=== PATIENT | female | born 1950 | race Caucasian/White ===

== ENCOUNTER 2016-09-26 06:58 | Day surgery (SDC) | payer MEDICARE, BC ==
[2016-09-26] MEDS ORDERED: Lactated Ringers 1,000 ML IV SCH (07:45)
[2016-09-26] MEDS ORDERED: Propofol 200 MG/20 ML SDV ONE (07:54)
[2016-09-26] MEDS ORDERED: fentaNYL 100 MCG/2 ML SDV ONE (07:54)
[2016-09-26] MEDS ORDERED: Midazolam 1 MG/ML 2 ML SDV ONE (07:54)
[2016-09-26 10:55] VITALS: BP 124/78
--- NOTE | 2016-09-27 08:12 | OR ---
DATE OF PROCEDURE: 09/26/2016 PREOPERATIVE DIAGNOSIS: Colon cancer screening. POSTOPERATIVE DIAGNOSIS: Diverticulosis. PROCEDURE: Colonoscopy to the cecum. ANESTHESIA: IV anesthesia with monitored anesthesia care. INDICATION: This 66-year-old white female is referred for a colonoscopy for colon cancer screening. She says her last colonoscopic exam was done 10 years ago. I counseled her for the procedure including risks and alternatives, and she gave her informed consent to proceed. DESCRIPTION OF PROCEDURE: The patient was placed in the left lateral decubitus position. IV anesthesia was administered by the Anesthesia Service. Time-out was held. A rectal exam was performed, which was unremarkable. The flexible video Olympus colonoscope was introduced through her anus, up her rectum, and out her colon, all the way to the cecum. Once the cecum was reached, the scope was slowly withdrawn examining the mucosa throughout. A few left-sided diverticula were seen. There was no bleeding or inflammation associated with them. No other lesions were noted. The scope was retroflexed in the rectum with the distal rectum showing some hemorrhoidal tissue. Otherwise, unremarkable. The scope was straightened and removed. She tolerated the procedure well. Ben De La Torre MD /[id number]
== END 2016-09-26 11:10 | disposition home or self-care (01) ==
LOC: JP.SDS 06:58
PROVIDERS: ATTEND Surgery
DX: Z12.11 Encounter for screening for malignant neoplasm of colon (principal); K57.30 Diverticulosis of large intestine without perforation or abscess without bleeding; E78.00 Pure hypercholesterolemia, unspecified; E03.9 Hypothyroidism, unspecified; I12.9 Hypertensive chronic kidney disease with stage 1 through stage 4 chronic kidney disease, or unspecified chronic kidney disease; N18.2 Chronic kidney disease, stage 2 (mild); K21.9 Gastro-esophageal reflux disease without esophagitis
CPT/HCPCS: G0121; J2250; J2704; J3010; J7120

== ENCOUNTER 2017-06-21 22:07 | Emergency (ER) | payer MEDICARE, BC ==
[2017-06-21] MEDS ORDERED: Iohexol 300 MG/ML 30 ML Bottle PO ONE (22:58)
[2017-06-21] MEDS ORDERED: Sodium Chloride 0.9% 1,000 ML IV SCH (23:00)
[2017-06-21 23:34] VITALS: BP 172/62
--- NOTE | 2017-06-21 23:34 | EDM.PDOC ---
ED HPI GENERAL MEDICAL PROBLEM - General Chief Complaint: Gastrointestinal Problem Stated Complaint: ABD ISSUES Time Seen by Provider: 06/21/17 22:30 Source of Information: Reports: Patient, Family History Limitations: Reports: No Limitations - History of Present Illness INITIAL COMMENTS - FREE TEXT/NARRATIVE: 59-year-old female with upper abdominal pain for the past week, she was seen in the clinic 2 days ago with a chief complaint of epigastric pain. Her exam was nonspecific and labs were normal including a CBC and CMP. She was set up for an EGD early next week, but tonight the pain was more persistent, radiated to her back and her stools were light colored so she wanted it checked again. No fevers or chills. She's been taking antacids which isn't helping. Onset: Unknown/Unsure Location: Reports: Abdomen, Back Severity: Moderate Associated Symptoms: Reports: Malaise. Denies: Fever/Chills, Headaches, Nausea/ Vomiting, Shortness of Breath abdominal pain Pain Score (Numeric/FACES): 5 - Related Data Allergies Allergy/AdvReac Type Severity Reaction Status Date / Time No Known Allergies Allergy Verified 09/26/16 07:16 Home Meds: Home Meds Metoprolol Tartrate [Metoprolol Tartrate] 50 mg PO QAM 07/23/15 [History] Aspirin [Adult Low Dose Aspirin EC] 81 mg PO DAILY 09/24/16 [History] Hydrochlorothiazide [Hydrochlorothiazide] 25 mg PO DAILY 06/21/17 [History] Losartan [Cozaar] 25 mg PO DAILY 06/21/17 [History] Omeprazole Magnesium [Prilosec Otc] 20 mg PO DAILY 06/21/17 [History] Past Medical History HEENT 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: Cataract, Impaired Vision Cardiovascular 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: Hypertension Gastrointestinal 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: GERD Genitourinary 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: Chronic Renal Insuffiency 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: Musculoskeletal 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: Arthritis, Back Pain, Chronic, Osteoporosis Neurological 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: None Psychiatric 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: Depression - Infectious Disease History Infectious Disease 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: Chicken Pox, Measles, Mumps, Shingles - Past Surgical History HEENT Surgical 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: Cataract Surgery, Tonsillectomy GI Surgical 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: Appendectomy, Colonoscopy Neurological Surgical 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: Lumbar Spine, Spinal Fusion Musculoskeletal Surgical 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: Arthroscopic Knee Social & Family History - Tobacco Use Smoking Status *Q: Never Smoker Second Hand Smoke Exposure: No - Caffeine Use Caffeine Use: Reports: Coffee - Recreational Drug Use Recreational Drug Use: No ED ROS GENERAL - Review of Systems Review Of Systems: See Below Constitutional: Reports: Malaise. Denies: Fever, Chills Respiratory: Denies: Shortness of Breath Cardiovascular: Reports: Chest Pain (Epigastric) GI/Abdominal: Reports: Abdominal Pain, Other (Stool color is very light tonight) . Denies: Constipation, Diarrhea, Nausea, Vomiting : Reports: No Symptoms Skin: Reports: No Symptoms Neurological: Reports: Other (Some pain in her back radiating down the back of her legs) Psychiatric: Reports: Other (Seems very anxious) ED EXAM, GI/ABD - Physical Exam Exam: See Below Exam Limited By: No Limitations General Appearance: Alert, No Apparent Distress Eyes: Bilateral: Normal Appearance Respiratory/Chest: No Respiratory Distress, Lungs Clear Cardiovascular: Regular Rate, Rhythm GI/Abdominal Exam: Soft, Non-Tender (I am not reproducing a lot of pain with exam) Neurological: Alert, Oriented Skin Exam: Warm, Dry Course - Vital Signs Last Recorded V/S: Last Vital Signs Temp 97.0 F 06/21/17 22:41 Pulse 60 06/21/17 23:32 Resp 18 06/21/17 23:32 BP 172/62 H 06/21/17 23:32 Pulse Ox 98 06/21/17 23:32 - Orders/Labs/Meds Orders: Active Orders 24 hr Category Date Time Status Abdomen Pelvis w Cont [CT] Stat Exams 06/21/17 22:55 Taken Labs: Laboratory Tests 06/21/17 Range/Units 23:09 Troponin I < 0.017 (0.000-0.056) ng/mL Meds: Medications Discontinued Medications Generic Name Dose Route Start Last Admin Trade Name Freq PRN Reason Stop Dose Admin Sodium Chloride 1,000 mls @ 500 mls/hr 06/21/17 23:00 06/21/17 23:09 Normal Saline IV 500 mls/hr ASDIRECTED JAXSON Administration Sodium Chloride 75 mls @ 3 mls/sec 06/22/17 00:15 06/22/17 00:28 Normal Saline IV 3 mls/sec ASDIRECTED JAXSON Administration Iohexol 20 ml 06/21/17 22:58 06/21/17 23:08 Omnipaque PO 06/21/17 22:59 20 ml ONETIME ONE Administration Iopamidol 100 ml 06/22/17 00:10 06/22/17 00:28 Isovue-300 (61%) IV 06/23/17 00:11 100 ml . DIRECTED PRN Administration RADIOLOGY EXAM Sodium Chloride 10 ml 06/22/17 00:10 06/22/17 00:28 Saline Flush FLUSH 06/22/17 00:11 10 ml ONETIME ONE Administration - Re-Assessments/Exams Free Text/Narrative Re-Assessment/Exam: 06/21/17 23:34 Reviewed the clinic records, her labs were all normal 2 days ago. An IV was started, she was hydrated with normal saline and a troponin was obtained. Plans are to CT her abdomen and pelvis with oral and IV contrast. 06/22/17 01:18 CT revealed a very large hepatic cyst pressing up against the hepatic capsule under the ribs and extending to the gallbladder. No other significant abnormalities. I did review the clinic records and found a CT scan from 2007, the cyst was present but much smaller. I suspect it's become symptomatic. I'll discuss the findings with Dr. Mitchell in the morning, the patient will be discharged for tonight. Departure - Departure Time of Disposition: 01:30 Disposition: Home, Self-Care 01 Condition: Good Clinical Impression: Abdominal pain - Discharge Information Instructions: Abdominal Pain, Adult, [id number] Referrals: Leticia Carrasco PA [Primary Care Provider] - Forms: ED Department Discharge Care Plan Goals: I am planning on having Dr. Mitchell contact you in the next 48 hours to discuss treatment plans. If you do not hear from him by Saturday, please call the clinic. Return to ER sooner if worsening or concerns. - My Orders Last 24 Hours: My Active Orders 06/21/17 22:55 Abdomen Pelvis w Cont [CT] Stat - Assessment/Plan Last 24 Hours: My Active Orders 06/21/17 22:55 Abdomen Pelvis w Cont [CT] Stat
[2017-06-22] MEDS ORDERED: Iopamidol 612 MG/ML 100 ML Bottle IV PRN (00:10)
[2017-06-22] MEDS ORDERED: Sodium Chloride 0.9% 10 ML Syringe FLUSH ONE (00:10)
[2017-06-22] MEDS ORDERED: Sodium Chloride 0.9% 75 ML IV SCH (00:15)
== END 2017-06-22 01:33 | disposition home or self-care (01) ==
LOC: JP.ED 22:07
DX: R10.10 Upper abdominal pain, unspecified (principal); I12.9 Hypertensive chronic kidney disease with stage 1 through stage 4 chronic kidney disease, or unspecified chronic kidney disease; K21.9 Gastro-esophageal reflux disease without esophagitis; N18.9 Chronic kidney disease, unspecified; Z79.899 Other long term (current) drug therapy; Z79.82 Long term (current) use of aspirin
CPT/HCPCS: 36415; 74177; 84484; 96360; 96361; 99284; J7030; J7040; J7050; Q9965; Q9967; 99283

== ENCOUNTER 2017-06-24 07:41 | Inpatient (IN) | payer MEDICARE, BC ==
[2017-06-24] MEDS ORDERED: Bupivacaine 0.5%/EPINEPHrine 1:200,000 50 ML MDV ONE (07:43)
[2017-06-24] MEDS ORDERED: Scopolamine 1.5 MG Transdermal Patch TOP SCH (08:15)
[2017-06-24] MEDS ORDERED: Celecoxib 200 MG Cap PO ONE (08:15)
[2017-06-24] MEDS: Acetaminophen 500 MG Tab PO ONE ×2 (08:29→08:53)
[2017-06-24] MEDS ORDERED: Glycopyrrolate 0.2 MG/ML 5 ML MDV ONE (08:42)
[2017-06-24] MEDS ORDERED: fentaNYL 250 MCG/5 ML SDV ONE (08:42)
[2017-06-24] MEDS ORDERED: Dexamethasone 4 MG/ML SDV ONE (08:42)
[2017-06-24] MEDS ORDERED: Rocuronium 50 MG/5 ML Vial ONE (08:42)
[2017-06-24] MEDS ORDERED: Propofol 200 MG/20 ML SDV ONE (08:42)
[2017-06-24] MEDS ORDERED: Ondansetron 4 MG/2 ML SDV ONE (08:42)
[2017-06-24] MEDS ORDERED: Neostigmine Methylsulfate 1 MG/ML 5 ML Syringe ONE (08:42)
[2017-06-24] MEDS ORDERED: Dextrose 5%-Lactated Ringers 1,000 ML IV SCH ×2 (09:00→12:30)
[2017-06-24] MEDS ORDERED: Lidocaine 2% 100 MG/5 ML Syringe IVPUSH ONE (09:30)
[2017-06-24] MEDS ORDERED: cefOXitin 2 GM in Premix Bag 1 BAG IV ONE (09:30)
[2017-06-24] MEDS ORDERED: Lidocaine 0.4%/D5W 2 GM/500 ML BAG IV SCH ×2 (09:30→12:15)
[2017-06-24] MEDS ORDERED: Ketamine 500 MG/5 ML MDV IV SCH (09:30)
[2017-06-24] MEDS ORDERED: Ropivacaine 32 ML, Dexamethasone 8 MG, EPINEPHrine 0.4 MG, Sodium Chloride 0.9% 45.6 ML NERVRT SCH ×4 (09:30)
[2017-06-24] MEDS ORDERED: Lactated Ringers 1,000 ML ONE (10:04)
[2017-06-24] MEDS ORDERED: HYDROmorphone/Normal Saline 15 MG/30 ML PCA IV PRN (11:21)
[2017-06-24] MEDS ORDERED: Naloxone 0.4 MG/ML SDV IV PRN (11:23)
[2017-06-24] MEDS ORDERED: hydrOXYzine HCl 100 MG/2 ML SDV IM ONE (11:45)
[2017-06-24] MEDS ORDERED: Ondansetron 4 MG/2 ML SDV IVPUSH PRN (12:24)
[2017-06-24] MEDS: Acetaminophen/HYDROcodone 325-5 MG Tab PO PRN ×2 (12:29→19:54)
[2017-06-24] MEDS ORDERED: Acetaminophen 325 MG Tab PO PRN (12:30)
[2017-06-24] MEDS: Hydrochlorothiazide 25 MG Tab PO SCH (14:29)
[2017-06-24] MEDS: Pantoprazole 40 MG Vial IV SCH (14:29)
[2017-06-24] MEDS: Losartan 50 MG Tab PO SCH (14:30)
[2017-06-24] MEDS: cefOXitin 2 GM in Sodium Chloride 0.9% 50 ML IV SCH ×2 (15:22→21:30)
[2017-06-24] MEDS: Dextrose 5%-Lact Ringers w/KCl 1,000 ML IV SCH (21:30)
[2017-06-25] MEDS: cefOXitin 2 GM in Sodium Chloride 0.9% 50 ML IV SCH (03:19)
[2017-06-25] MEDS: Dextrose 5%-Lact Ringers w/KCl 1,000 ML IV SCH (06:33)
--- NOTE | 2017-06-25 07:20 | PCM.SURGPN ---
- General Info Date of Service: 06/25/17 Date of Surgery/Procedure: 06/24/17 POD#: 1 Post-Op Diagnosis: Right lobe hepatic cyst Functional Status: Reports: Pain Controlled, Tolerating Diet, Ambulating, Urinating, Incentive Spirometry - Review of Systems General: Reports: No Symptoms HEENT: Reports: No Symptoms Pulmonary: Reports: No Symptoms Cardiovascular: Reports: No Symptoms Gastrointestinal: Reports: Abdominal Pain (generalized abdominal pain 09/17) Genitourinary: Reports: No Symptoms Musculoskeletal: Reports: Other (right shoulder pain) Skin: Reports: Other (IV infiltration of left wrist) Neurological: Reports: Confusion Psychiatric: Reports: Confusion - Patient Data Vitals - Most Recent: Last Vital Signs Temp 97.4 F 06/25/17 07:00 Pulse 71 06/25/17 03:00 Resp 18 06/25/17 07:00 BP 114/52 L 06/25/17 07:00 Pulse Ox 93 L 06/25/17 03:00 Weight - Most Recent: 141 lb I&O - Last 24 Hours: Intake & Output 06/24/17 06/25/17 06/25/17 22:59 06:59 14:59 Intake Total 1651 958 Output Total 365 620 Balance 1286 338 Lab Results Last 24 Hrs: Laboratory Results - last 24 hr 06/24/17 06/24/17 06/25/17 Range/Units 08:08 08:08 04:28 WBC 5.8 10.7 (4.5-11.0) K/uL RBC 4.86 3.90 (3.30-5.50) M/uL Hgb 14.3 11.5 L D (12.0-15.0) g/dL Hct 41.5 33.7 L (36.0-48.0) % MCV 85 86 (80-98) fL MCH 29 30 (27-31) pg MCHC 35 34 (32-36) % Plt Count 212 216 (150-400) K/uL Sodium 144 (140-148) mmol/L Potassium 3.3 L (3.6-5.2) mmol/L Chloride 102 (100-108) mmol/L Carbon Dioxide 31 (21-32) mmol/L Anion Gap 14.3 H (5.0-14.0) mmol/L BUN 13 (7-18) mg/dL Creatinine 0.9 (0.6-1.0) mg/dL Est Cr Clr Drug Dosing 46.23 mL/min Estimated GFR (MDRD) > 60 (>60) Glucose 126 H (74-106) mg/dL Calcium 8.9 (8.5-10.1) mg/dL Total Bilirubin 0.7 (0.2-1.0) mg/dL AST 19 (15-37) U/L ALT 28 (12-78) U/L Alkaline Phosphatase 65 (46-116) U/L Total Protein 7.1 (6.4-8.2) g/dL Albumin 3.9 (3.4-5.0) g/dL Globulin 3.2 (2.3-3.5) g/dL Albumin/Globulin Ratio 1.2 (1.2-2.2) 06/25/17 Range/Units 04:28 WBC (4.5-11.0) K/uL RBC (3.30-5.50) M/uL Hgb (12.0-15.0) g/dL Hct (36.0-48.0) % MCV (80-98) fL MCH (27-31) pg MCHC (32-36) % Plt Count (150-400) K/uL Sodium 143 (140-148) mmol/L Potassium 3.8 (3.6-5.2) mmol/L Chloride 106 (100-108) mmol/L Carbon Dioxide 26 (21-32) mmol/L Anion Gap 11.0 (5.0-14.0) mmol/L BUN 10 (7-18) mg/dL Creatinine 1.3 H (0.6-1.0) mg/dL Est Cr Clr Drug Dosing 32.01 mL/min Estimated GFR (MDRD) 41 L (>60) Glucose 177 H (74-106) mg/dL Calcium 8.2 L (8.5-10.1) mg/dL Total Bilirubin 0.4 (0.2-1.0) mg/dL AST 55 H D (15-37) U/L ALT 74 D (12-78) U/L Alkaline Phosphatase 52 (46-116) U/L Total Protein 5.6 L (6.4-8.2) g/dL Albumin 2.9 L (3.4-5.0) g/dL Globulin 2.7 (2.3-3.5) g/dL Albumin/Globulin Ratio 1.1 L (1.2-2.2) Fabrizio Results Last 24 Hrs: Microbiology 06/24/17 10:45 Gram Stain - Final Liver - Unspecified Wound Culture - Preliminary NO GROWTH AFTER 1 DAY Anaerobic Culture - Preliminary NO GROWTH AFTER 1 DAY Med Orders - Current: Current Medications Acetaminophen (Tylenol) 650 mg PO Q4H PRN PRN Reason: PAIIN Last Admin: 06/24/17 15:31 Dose: 650 mg Hydrocodone Bitart/Acetaminophen (Humphrey 325-5 Mg) 1 - 2 tab PO Q4H PRN PRN Reason: PAIN Last Admin: 06/24/17 19:54 Dose: 1 tab Aspirin (Halfprin) 81 mg PO DAILY [facility] Hydrochlorothiazide (Hydrochlorothiazide) 25 mg PO DAILY [facility] Last Admin: 06/24/17 14:29 Dose: 25 mg Hydromorphone HCl (Dilaudid Contract Specialist 15 Mg In Ns 30 Ml) 0 mg IV ASDIRECTED PRN; Protocol PRN Reason: Pain Potassium Cl/Dextrose/Lact Ringer's (D5 Lr With 20 Meq Kcl) 1,000 mls @ 125 mls /hr IV ASDIRECTED [facility] Last Admin: 06/25/17 06:33 Dose: 125 mls/hr Losartan Potassium (Cozaar) 25 mg PO DAILY [facility] Last Admin: 06/24/17 14:30 Dose: Not Given Metoprolol Succinate (Toprol Xl) 50 mg PO DAILY [facility] Naloxone HCl (Narcan) 0.1 mg IV ASDIRECTED PRN PRN Reason: decreased respiratory rate Ondansetron HCl (Zofran) 4 mg IVPUSH Q4H PRN PRN Reason: NAUSEA Pantoprazole Sodium (Protonix Iv) 40 mg IV DAILY@0730 [facility] Last Admin: 06/24/17 14:29 Dose: 40 mg Scopolamine (Transderm-Scop) 1.5 mg TOP Q72H [facility] Stop: 06/26/17 10:00 Last Admin: 06/24/17 08:29 Dose: 1.5 mg Discontinued Medications Acetaminophen (Tylenol Extra Strength) 1,000 mg PO ONETIME ONE Stop: 06/24/17 08:16 Last Admin: 06/24/17 08:53 Dose: Not Given Bupivacaine HCl/Epinephrine Bitart (Marcaine 0.5%/Epinephrine 1:200,000) Confirm Administered Dose 50 ml .ROUTE .STK-MED ONE Stop: 06/24/17 07:44 Celecoxib (Celebrex) 200 mg PO ONETIME ONE Stop: 06/24/17 08:16 Last Admin: 06/24/17 08:29 Dose: 200 mg Ropivacaine 32 ml/Dexamethasone 8 mg/Epinephrine HCl 0.4 mg/ Sodium Chloride 45.6 ml 0 ml NERVRT ASDIRECTED [facility] Last Admin: 06/24/17 10:40 Dose: 80 syringe Dexamethasone (Dexamethasone) Confirm Administered Dose 4 mg .ROUTE .STK-MED ONE Stop: 06/24/17 08:43 Fentanyl (Sublimaze) Confirm Administered Dose 250 mcg .ROUTE .[facility] ONE Stop: 06/24/17 08:43 Glycopyrrolate (Robinul) Confirm Administered Dose 1 mg .ROUTE .ST-MED ONE Stop: 06/24/17 08:43 Hydroxyzine HCl (Vistaril) 75 mg IM ONETIME ONE Stop: 06/24/17 11:46 Last Admin: 06/24/17 11:43 Dose: 75 mg Cefoxitin Sodium 2 gm/ Premix 20 mls @ 400 mls/hr IV ONETIME ONE Stop: 06/24/17 09:32 Last Admin: 06/24/17 09:57 Dose: 400 mls/hr Dextrose/Lactated Ringer's (Dextrose 5%-Lactated Ringers) 1,000 mls @ 100 mls/ hr IV ASDIRECTED [facility] Last Admin: 06/24/17 08:52 Dose: 100 mls/hr Lidocaine HCl/Dextrose (Lidocaine 2 Gm/D5w 500 Ml) 2 gm in 500 mls @ 30 mls/hr IV .[id number] [facility] PRN Reason: 2 MG/MIN Ketamine HCl 100 mg/ Sodium (Chloride) 100 mls @ 14.7 mls/hr IV ASDIRECTED [facility] PRN Reason: 5 MCG/KG/MIN Lactated Ringer's (Ringers, Lactated) Confirm Administered Dose 1,000 mls @ as directed .ROUTE .STK-MED ONE Stop: 06/24/17 10:05 Lidocaine HCl/Dextrose (Lidocaine 2 Gm/D5w 500 Ml) 2 gm in 500 mls @ 15 mls/hr IV .Q24H [facility] PRN Reason: 1 MG/MIN Stop: 06/25/17 11:00 Last Admin: 06/24/17 12:13 Dose: 1 mg/min, 15 mls/hr Cefoxitin Sodium 2 gm/ Sodium (Chloride) 50 mls @ 100 mls/hr IV Q6H [facility] Stop: 06/25/17 04:29 Last Admin: 06/25/17 03:19 Dose: 100 mls/hr Dextrose/Lactated Ringer's (Dextrose 5%-Lactated Ringers) 1,000 mls @ 125 mls/ hr IV ASDIRECTED JAXSON Ketamine HCl (Ketalar) 25 mg IV ASDIRECTED JAXSON Lidocaine HCl (Xylocaine 2%) 80 mg IVPUSH ONETIME ONE Stop: 06/24/17 09:31 Last Admin: 06/24/17 12:24 Dose: Not Given Neostigmine Methylsulfate (Neostigmine) Confirm Administered Dose 5 mg .ROUTE .STK-MED ONE Stop: 06/24/17 08:43 Ondansetron HCl (Zofran) Confirm Administered Dose 4 mg .ROUTE .STK-MED ONE Stop: 06/24/17 08:43 Propofol (Diprivan 20 Ml) Confirm Administered Dose 200 mg .ROUTE .STK-MED ONE Stop: 06/24/17 08:43 Rocuronium [place] (Zemuron) Confirm Administered Dose 50 mg .ROUTE .STK-MED ONE Stop: 06/24/17 08:43 - Exam Wound/Incisions: Drainage (110 mL bloody fluid) General: Alert, Other (disoriented to time) HEENT: Pupils Equal Lungs: Clear to Auscultation, Normal Respiratory Effort Cardiovascular: Regular Rate, Regular Rhythm GI/Abdominal Exam: Normal Bowel Sounds, Tender Extremities: Other (IV infiltration of left wrist) Skin: Warm, Dry Psy/Mental Status: Alert, Normal Affect, Normal Mood, Hallucinations (described auditory hallucinations, but pt aware she is having them) - Problem List Review Problem List Initiated/Reviewed/Updated: Yes - My Orders Last 24 Hours: Active Orders 24 hr Category Date Time Status Patient Status [ADT] Routine ADT 06/24/17 11:05 Active Ambulate [RC] ASDIRECTED Care 06/24/17 12:04 Active IS (RT) [RT Incentive Spirometry] [RC] ASDIRECTED Care 06/24/17 08:00 Active Intake and Output [RC] QSHIFT Care 06/24/17 12:08 Active Overnight Pulse Oximetry [RC] Click to Edit Care 06/24/17 14:33 Active Oxygen Therapy [RC] PRN Care 06/24/17 12:04 Active Surgical Drains [Drain Management] [RC] ASDIRECTED Care 06/24/17 12:13 Active Telemetry Monitoring [Cardiac Monitoring] [RC] .As Care 06/24/17 13:29 Active Directed Up to Chair [RC] ASDIRECTED Care 06/24/17 12:04 Active Vital Signs [RC] Q4H Care 06/24/17 12:04 Active Full Liquid Diet [DIET] Diet 06/24/17 Dinner Ordered Regular Diet [DIET] Diet 06/25/17 Breakfast Active BELL TEST [] Routine Lab 06/24/17 10:20 Received CULTURE ANAEROBIC [] Routine Lab 06/24/17 10:45 Results CULTURE WOUND + SMEAR [] Routine Lab 06/24/17 10:45 Results Acetaminophen [Tylenol] Med 06/24/17 12:30 Active 650 mg PO Q4H PRN Acetaminophen/HYDROcodone [Humphrey 325-5 MG] Med 06/24/17 12:21 Active 1 - 2 tab PO Q4H PRN Aspirin [Halfprin] Med 06/25/17 09:00 Active 81 mg PO DAILY Dextrose 5%-Lact Ringers w/KCl [D5 LR with 20 mEq KCl] Med 06/24/17 12:30 Active 1,000 ml IV ASDIRECTED HYDROmorphone/Normal Saline [Dilaudid LONG TERM ACUTE CARE REGISTERED NURSE 15 MG in NS Med 06/24/17 11:21 Active 30 ML] See Protocol IV ASDIRECTED PRN Hydrochlorothiazide Med 06/24/17 14:00 Active 25 mg PO DAILY Losartan [Cozaar] Med 06/24/17 14:00 Active 25 mg PO DAILY Metoprolol Succinate [Toprol XL] Med 06/25/17 09:00 Active 50 mg PO DAILY Naloxone [Narcan] Med 06/24/17 11:23 Active 0.1 mg IV ASDIRECTED PRN Ondansetron [Zofran] Med 06/24/17 12:24 Active 4 mg IVPUSH Q4H PRN Pantoprazole [ProTONIX IV] Med 06/24/17 13:00 Active 40 mg IV DAILY@0730 Scopolamine [Transderm-Scop] Med 06/24/17 08:15 Active 1.5 mg TOP Q72H Pulse Oximetry Continuous Monitoring [OM.PC] Routine Oth 06/24/17 14:33 Ordered SCD [Sequential Compression Device] [OM.PC] Routine Oth 06/24/17 08:00 Ordered Resuscitation Status Routine Resus Stat 06/24/17 12:04 Ordered Medication Orders Acetaminophen (Tylenol) 650 mg PO Q4H PRN PRN Reason: PAIIN Last Admin: 06/24/17 15:31 Dose: 650 mg Hydrocodone Bitart/Acetaminophen (Humphrey 325-5 Mg) 1 - 2 tab PO Q4H PRN PRN Reason: PAIN Last Admin: 06/24/17 19:54 Dose: 1 tab Admin: 06/24/17 12:29 Dose: 1 tab Aspirin (Halfprin) 81 mg PO DAILY [facility] Hydrochlorothiazide (Hydrochlorothiazide) 25 mg PO DAILY [facility] Last Admin: 06/24/17 14:29 Dose: 25 mg Hydromorphone HCl (Dilaudid Contract Specialist 15 Mg In Ns 30 Ml) 0 mg IV ASDIRECTED PRN; Protocol PRN Reason: Pain Potassium Cl/Dextrose/Lact Ringer's (D5 Lr With 20 Meq Kcl) 1,000 mls @ 125 mls /hr IV ASDIRECTED [facility] Last Admin: 06/25/17 06:33 Dose: 125 mls/hr Infusion: 06/25/17 05:30 Dose: 125 mls/hr Admin: 06/24/17 21:30 Dose: 125 mls/hr Losartan Potassium (Cozaar) 25 mg PO DAILY [facility] Last Admin: 06/24/17 14:30 Dose: Metoprolol Succinate (Toprol Xl) 50 mg PO DAILY [facility] Naloxone HCl (Narcan) 0.1 mg IV ASDIRECTED PRN PRN Reason: decreased respiratory rate Ondansetron HCl (Zofran) 4 mg IVPUSH Q4H PRN PRN Reason: NAUSEA Pantoprazole Sodium (Protonix Iv) 40 mg IV DAILY@0730 [facility] Last Admin: 06/24/17 14:29 Dose: 40 mg Scopolamine (Transderm-Scop) 1.5 mg TOP Q72H [facility] Stop: 06/26/17 10:00 Last Admin: 06/24/17 08:29 Dose: 1.5 mg - Assessment Assessment (Free Text/Narrative):: Kerry is a 67 y/o female pod#1 s/p EGD and hepatic cyst drainage. Pain well-controlled at 2-5/10 with lidocaine, goal is to switch to Humphrey today. Lidocaine made pt confused--she is not oriented to time. She has been experiencing auditory hallucinations. Ambulating. Urinating. Constipated. JESSICA Drain: 110mL bloody fluid. D5LR running. Cr has spiked to 1.3. - Plan Plan (Free Text/Narrative):: Pain: discontinue lidocaine; switch to Humphrey. ; discussed with pt that shoulder pain is normal given her liver procedure Ambulating: continue frequent ambulation-up at least 6 times per day. Lungs: use incentive spirometry at least 10times/hour every hour GI: use colase and milk of magnesia for softening and stimulation; respectively Fluids: change from 125ml/hr to 100ml/hr of D5LR with 20mEq K. Repeat BMP tomorrow to follow creatinine and other electrolytes. Drain: remove tomorrow Dispo: discharge tomorrow
[2017-06-25] MEDS ORDERED: Dextrose 5%-Lact Ringers w/KCl 1,000 ML IV SCH (08:00)
[2017-06-25] MEDS ORDERED: Magnesium Hydroxide 400 MG/5 ML Susp 30 ML Cup PO ONE (09:00)
[2017-06-25] MEDS: Docusate Sodium 100 MG Cap PO SCH ×2 (09:17→20:28)
[2017-06-25] MEDS: Bisacodyl 5 MG Tab PO SCH ×2 (09:17→20:28)
[2017-06-25] MEDS: Pantoprazole 40 MG Vial IV SCH (09:17)
[2017-06-25] MEDS: Hydrochlorothiazide 25 MG Tab PO SCH (09:18)
[2017-06-25] MEDS: Aspirin 81 MG Tab.EC PO SCH (09:18)
[2017-06-25] MEDS: Metoprolol Succinate 50 MG Tab.ER PO SCH (09:34)
[2017-06-25] MEDS: Losartan 50 MG Tab PO SCH (09:35)
[2017-06-25] MEDS: Acetaminophen/HYDROcodone 325-5 MG Tab PO PRN ×3 (10:49→20:28)
[2017-06-25] MEDS: VERIFY SCOP PATCH TOP SCH (10:50)
[2017-06-26] MEDS ORDERED: Pantoprazole 40 MG Tab.CR PO SCH (07:30)
--- NOTE | 2017-06-26 07:39 | DISCH ---
ADMISSION DIAGNOSES: Abdominal pain, right upper quadrant; hypertension; gastroesophageal reflux disease; chronic renal insufficiency; chronic back pain; arthritis; and osteoporosis. DISCHARGE DIAGNOSES: 1. Esophagogastroduodenoscopy with biopsy of the antrum, CLOtest - negative. 2. Diagnostic laparoscopy with drainage of liver cyst and partial hepatic lobectomy resecting liver over line cyst for mild antral gastritis and tense liver cyst, right hepatic lobe. Date of surgery, 06/24/2017. HISTORY: Kerry Hayward is a 67-year-old female with right upper quadrant abdominal pain. After preoperative evaluation and discussion of possible risks and possible complications, she wished to proceed with surgical procedure. HOSPITAL COURSE: Kerry had her surgery on 06/24/2017. She had no operative complications. On postop day #1, she was on a HEALTH SCREENER for pain. Her home medications were restarted. On postop day #2, she was changed to oral pain medication. She was started on bowel stimulation and a regular diet. On postop day #2, she was ready to be discharged to home. Her vital signs were stable. Pain was well controlled. Activity, good. Oral intake, adequate. DISCHARGE PHYSICAL EXAMINATION: GENERAL: Kerry Hayward is a 67-year-old female. VITAL SIGNS: Height is 5 feet 1.42 inches, weight is 141 pounds. TPR is 97, 52, 18. Blood pressure 114/59. HEENT: Negative. NECK: Supple. HEART: Regular rate and rhythm. LUNGS: Clear. ABDOMEN: Dressing was taken down. She has 2 trocar site sutures intact. JESSICA drain is intact draining a light red drainage, 80 mL over the past 24 hours. This will be discontinued prior to discharge. Abdominal binder otherwise has been on. EXTREMITIES: Without peripheral edema or calf tenderness. DISPOSITION: Discharged to home. CONDITION: Stable and improving. HOME MEDICATIONS: Dulcolax 10 mg p.o. b.i.d., #30, may stop after bowel movement; [place] 5/325 mg 1 to 2 tabs every 4 hours p.r.n. pain, #30; milk of magnesia 30 mL, 2 were sent home with the patient to take 1 today and 1 tomorrow for constipation. She is to resume her home medications of Zocor 20 mg p.o. at bedtime, Prilosec OTC 20 mg p.o. daily, metoprolol tartrate 50 mg q.a.m., Cozaar 25 mg p.o. daily, hydrochlorothiazide 25 mg p.o. daily, aspirin 81 mg p.o. daily, Tylenol 650 mg q.4 hours p.r.n. pain. FOLLOWUP APPOINTMENT: With Rayshawn Mitchell MD on 07/03/2017 at 9:00 a.m. DIET: Usual diet as tolerated. Drink 8 to 10 glasses of water a day. ACTIVITY: No lifting greater than 10 pounds for 2 weeks. Activity as tolerated. Driving, do not drive on narcotic pain medication and for 1 week postop. Shower/bathing, may shower. Wound incision care, keep operative site clean and dry. Wear abdominal binder for 2 weeks and then as tolerated. Notify provider if any fever, nausea, or vomiting and use incentive spirometer 10 times every hour while awake for 1 week.
[2017-06-26] MEDS: Bisacodyl 5 MG Tab PO SCH (08:32)
[2017-06-26] MEDS: VERIFY SCOP PATCH TOP SCH (08:32)
[2017-06-26] MEDS: Hydrochlorothiazide 25 MG Tab PO SCH (08:33)
[2017-06-26] MEDS: Docusate Sodium 100 MG Cap PO SCH (08:33)
[2017-06-26] MEDS: Losartan 50 MG Tab PO SCH (08:33)
[2017-06-26] MEDS: Metoprolol Succinate 50 MG Tab.ER PO SCH (08:34)
[2017-06-26] MEDS: Aspirin 81 MG Tab.EC PO SCH (08:35)
[2017-06-26] MEDS: Acetaminophen/HYDROcodone 325-5 MG Tab PO PRN (08:40)
--- NOTE | 2017-06-26 09:44 | PN ---
DATE OF SERVICE: 06/25/2017 The patient has been afebrile with stable vital signs. She is little bit hazy from mental status and confused. The lidocaine drip was stopped, and that seems to have cleared that issue. Otherwise, she appears to be stable, is not having much in the way of pain, except for with motion. Her labs show hemoglobin of 11.5, which is probable a combination of some operative blood loss, as well as rehydration, as she did come in probably somewhat dehydrated. Her chemistry shows a potassium now up to 3.8. Her creatinine did move from 0.9 to 1.3. She is off cephalosporins at this point, and we will keep the IV going at around 100 mL an hour for today. She is switching over to oral pain medication and possibly home tomorrow. Rayshawn Mitchell MD /[id number]
[2017-06-26 12:11] VITALS: BP 108/51
--- NOTE | 2017-06-27 10:48 | OR ---
DATE OF PROCEDURE: 06/24/2017 PREOPERATIVE DIAGNOSES: 1. Epigastric pain. 2. Enlarging right hepatic cyst, causing ongoing discomfort. POSTOPERATIVE DIAGNOSES: 1. Mild antral gastritis. 2. Tensely distended right hepatic lobe cyst. OPERATIVE PROCEDURES: 1. Esophagogastroduodenoscopy with biopsies of the antrum for CLOtest (83396). 2. Diagnostic laparoscopy with: a. Drainage of right hepatic cyst ([id number]). b. Partial hepatic lobectomy, resecting portion of right hepatic lobe overlying cyst ([id number]). ANESTHESIA: General. CITY BUS DRIVER: Olya Rankin PA-C and SABRINA DixonIII INDICATIONS FOR PROCEDURE: This is a 67-year-old who was seen over the weekend in the emergency room with worsening pain in the right side of the abdomen and, to some extent, flank. Previously, she had been worked up for more of an epigastric pain and was scheduled next Saturday for an upper endoscopy. On the weekend, the pain, which appears to now be a separate event, occurred progressively over the right side of the upper abdomen, and a CT scan showed a liver cyst in the interim from the previous CT scan that had roughly doubled in size, and it would appear to be the likely cause of the patient's discomfort. She is notably uncomfortable when pushing over that area of the abdomen and lowermost chest. Gallbladder on CT scan appeared to be normal. A discussion was held with the patient and yesterday, and the plan will be to proceed with an upper endoscopy, as previously scheduled, along with diagnostic laparoscopy with drainage of liver cyst and most likely resect a portion of the liver there as well, to obtain a well-defined histology, as well as prevent regrowth of the cyst. We will also look at the gallbladder. If that appears to be abnormal, we would remove that at the same time. Potential risks of the procedure including bleeding, infection, injury to underlying viscera, the rare possibility that the cyst might be malignant and need additional treatment, along with possibility of persistent symptoms postoperatively were all gone over, and the patient wishes to proceed. DETAILS OF PROCEDURE: The patient was taken to the operating room and placed in a supine position. After general endotracheal anesthesia was induced, she was converted to a lithotomy position and a Baldwin catheter was inserted and the abdomen prepped and draped. While the patient's abdomen was being prepared, upper GI endoscope was passed orally through the length of the esophagus and into the stomach with retroflexion view of the fundus, and thereafter through the pyloric channel and the proximal duodenum as well. Visualized hypopharynx, larynx, upper esophageal sphincter, and esophageal body were unremarkable. There was no inflammation grossly at the gastroesophageal junction and no upward extension of that to mucosal line and no significant hiatal hernia. Within the stomach, there was a small amount of retained bile. In the immediate prepyloric area, there was patchy redness without erosions or ulcers, consistent with some mild gastritis. The pyloric channel and duodenum to the junction of the third and fourth portions were unremarkable. Biopsies were obtained from the antrum and sent for CLOtest for H. pylori. Minimal bleeding from the biopsy sites was seen and the scope then withdrawn, evacuating as much of the air as possible. At this point, 3 fingerbreadths to the right of the umbilicus, a transverse incision was made and peritoneal cavity entered under direct vision with an Optiview trocar. Bilateral transversus abdominis plane blocks were placed in the subcostal position with direct visualization of the needle in the transversus abdominis plane. A standard solution was injected bilaterally. Following this, a 12 mm trocar was placed in the abdomen just to the left of the umbilicus and a single 5 mm trocar more to the right of the original trocar site and the abdomen examined. Initially, the gallbladder was examined, and this was found to be entirely normal in appearance. The patient did have a visible tense cyst causing distortion of the liver contour, as seen on the CT scan. No other abnormalities were noted within the general abdominal examination. At this point, an incision using electrocautery over the lateral aspect of the liver was made. There was a small capsule of intact liver overlying the cyst. The cyst fluid was then evacuated. It was perfectly clear watery consistent fluid. Cultures were obtained, as well as some fluid being sent for cytology. At that point, the cyst was further opened up, and once the liver was satisfactorily drained, we then did progressive resection of the liver over its anterolateral aspect of the capsule of the cyst. This was done with the sequence of Endo-KERI catarina, using the lehman and vascular loads. The specimen was then placed into a specimen bag and delivered through the left trocar site. The edges of the staple line were then cauterized to establish firm hemostasis. The lining of the cyst was visibly entirely smooth, and there was no suspicion of this being malignant. At that point, with no further problems noted, a Jay Jay-Lazo drain was taken through the right lateral trocar site and placed adjacent to the opening in the liver, and the trocars were then sequentially removed. The fascia at the 12 mm sites was closed with 0 Vicryl stitch and the skin with 4-0 Vicryl skin stitch. Dressing was applied. The patient was taken to the recovery room in satisfactory condition. There were no evident complications. Physician grants and contracts assistant, Olya Rankin, played an essential role assisting in lthis case, helping to position the patient, retract structures as needed, as well as suturing and cutting sutures when indicated. Her presence improved patient safety and decreased operative time. Rayshawn Mitchell MD /[id number]
== END 2017-06-26 13:27 | disposition home or self-care (01) | DRG 983 ==
LOC: JP.SDS 07:41 → EDSTATUS 09:30 → JP.MS 11:05 → JP.2SS 11:05
PROVIDERS: ADMIT Surgery; ATTEND Surgery
PROC: 0DB68ZX Excision of Stomach, Via Natural or Artificial Opening Endoscopic, Diagnostic (ICD-10-PCS; principal; 2017-06-24)
PROC: 0FB14ZZ Excision of Right Lobe Liver, Percutaneous Endoscopic Approach (ICD-10-PCS; 2017-06-24)
PROC: 0F914ZZ Drainage of Right Lobe Liver, Percutaneous Endoscopic Approach (ICD-10-PCS; 2017-06-24)
DX: K29.70 Gastritis, unspecified, without bleeding (principal); K76.89 Other specified diseases of liver; I12.9 Hypertensive chronic kidney disease with stage 1 through stage 4 chronic kidney disease, or unspecified chronic kidney disease; N18.9 Chronic kidney disease, unspecified; F32.9 Major depressive disorder, single episode, unspecified; Z79.899 Other long term (current) drug therapy; Z79.82 Long term (current) use of aspirin
CPT/HCPCS: 36415; 80048; 80053; 83735; 84100; 85027; 87070; 87075; 87081; 87205; 88112; 88305; 88307; A9270-GY; C9113; J0171; J0694; J1100; J2001; J2405; J2704; J2710; J2795; J3010; J3410; J3480; J7030; J7042; J7050; J7120

== ENCOUNTER 2017-08-15 07:03 | Inpatient (IN) | payer MEDICARE, BC ==
[2017-08-15] MEDS ORDERED: Bupivacaine 0.5%/EPINEPHrine 1:200,000 50 ML MDV ONE (07:14)
[2017-08-15] MEDS ORDERED: Meropenem 500 MG SDV ONE (07:14)
[2017-08-15] MEDS ORDERED: Succinylcholine 200 MG/10 ML MDV ONE (07:18)
[2017-08-15] MEDS ORDERED: Neostigmine Methylsulfate 1 MG/ML 5 ML Syringe ONE (07:18)
[2017-08-15] MEDS ORDERED: Dexamethasone 4 MG/ML SDV ONE (07:18)
[2017-08-15] MEDS ORDERED: Glycopyrrolate 0.2 MG/ML 5 ML MDV ONE (07:18)
[2017-08-15] MEDS ORDERED: Rocuronium 50 MG/5 ML Vial ONE (07:18)
[2017-08-15] MEDS ORDERED: Propofol 200 MG/20 ML SDV ONE (07:18)
[2017-08-15] MEDS ORDERED: Ondansetron 4 MG/2 ML SDV ONE (07:18)
[2017-08-15] MEDS ORDERED: fentaNYL 250 MCG/5 ML SDV ONE ×2 (07:19→10:13)
[2017-08-15] MEDS ORDERED: Acetaminophen 500 MG Tab PO ONE (07:30)
[2017-08-15] MEDS ORDERED: Dextrose 5%-Lactated Ringers 1,000 ML IV SCH (08:00)
[2017-08-15] MEDS ORDERED: cefOXitin 2 GM in Sodium Chloride 0.9% 50 ML IV ONE (08:00)
[2017-08-15] MEDS ORDERED: Ketamine 500 MG/5 ML MDV IV SCH (08:45)
[2017-08-15] MEDS ORDERED: Ropivacaine 32 ML, Dexamethasone 8 MG, EPINEPHrine 0.4 MG, Sodium Chloride 0.9% 45.6 ML NERVRT SCH ×4 (08:45)
[2017-08-15] MEDS ORDERED: Lactated Ringers 1,000 ML ONE (11:15)
[2017-08-15] MEDS ORDERED: hydrOXYzine HCl 100 MG/2 ML SDV IM ONE (12:03)
[2017-08-15] MEDS ORDERED: HYDROmorphone/Normal Saline 15 MG/30 ML PCA IV PRN (13:33)
[2017-08-15] MEDS ORDERED: Naloxone 0.4 MG/ML SDV IV PRN (13:33)
[2017-08-15] MEDS: Ondansetron 4 MG/2 ML SDV IVPUSH PRN ×2 (13:41→17:10)
[2017-08-15] MEDS ORDERED: Albuterol/Ipratropium 3.0-0.5 MG/3 ML Neb Soln NEB ONE (13:53)
[2017-08-15] MEDS ORDERED: Albuterol/Ipratropium 3.0-0.5 MG/3 ML Neb Soln ONE (13:59)
[2017-08-15] MEDS ORDERED: Furosemide 20 MG/2 ML VIAL IVPUSH ONE (14:00)
[2017-08-15] MEDS: Acetaminophen/HYDROcodone 325-5 MG Tab PO PRN ×2 (14:24→18:00)
--- NOTE | 2017-08-15 14:36 | CR ---
CHEST: AP portable CLINICAL HISTORY:Hypoxia COMPARISON:None FINDINGS: Heart size is upper limits of normal. Pulmonary vascularity and hilar structures are unrem arkable. The no infiltrate, effusion or pneumothorax is seen. There is a drain in the lateral subphre sandy space on the right. IMPRESSION: No acute cardiopulmonary process
[2017-08-15] MEDS: cefOXitin 2 GM in Sodium Chloride 0.9% 50 ML IV SCH ×2 (15:20→20:08)
[2017-08-15] MEDS ORDERED: Pantoprazole 40 MG Vial IVPUSH SCH (16:00)
--- NOTE | 2017-08-15 17:01 | PCM.CONS ---
H&P History of Present Illness - General Date of Service: 08/15/17 Admit Problem/Dx: Admission Diagnosis/Problem Admission Diagnosis/Problem Biliary colic Source of Information: Patient, RN Notes Reviewed History Limitations: Reports: No Limitations - History of Present Illness Initial Comments - Free Text/Narative: Ms. Hayward is a 67-year-old woman who I been asked to see by Dr. Mitchell concerning hypoxia during the initial postoperative period. She underwent a laparoscopic cholecystectomy as well as lysis of adhesions and partial resection of the right lobe of the liver earlier today by Dr. Mitchell. After she was discharged from [facility] and went to the surgical floor, nursing staff noted hypoxia that seem to be worsening. Shortly thereafter I saw the patient she did not appear to be in significant respiratory distress didn't denied shortness of breath. Vital signs were stable other than the low oxygen saturation. She denied any symptoms of chest pain or pressure. Middle Abdomen Pain Score (Numeric/FACES): 5 - Related Data Allergies/Adverse Reactions: Allergies Allergy/AdvReac Type Severity Reaction Status Date / Time lidocaine AdvReac Confusion Verified 06/25/17 12:07 Home Medications: Home Meds Aspirin [Adult Low Dose Aspirin EC] 81 mg PO DAILY 09/24/16 [History] Hydrochlorothiazide 25 mg PO DAILY 06/21/17 [History] Losartan [Cozaar] 25 mg PO DAILY 06/21/17 [History] Cholecalciferol (Vitamin D3) [Vitamin D3] 1 tab PO DAILY 08/15/17 [History] Metoprolol Succinate 1 tab PO DAILY 08/15/17 [History] Past Medical History HEENT 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: Cataract, Impaired Vision Cardiovascular 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: Arrhythmia, Hypertension Gastrointestinal 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: GERD Genitourinary 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: None Other Genitourinary History: bladder and rectal prolapse repair OPTIMIZATION ANALYST 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: Musculoskeletal 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: Arthritis, Back Pain, Chronic, Osteoporosis Neurological 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: None Psychiatric 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: Depression - Infectious Disease History Infectious Disease 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: Chicken Pox, Measles, Meningitis, Shingles - Past Surgical History HEENT Surgical 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: Cataract Surgery, Tonsillectomy Cardiovascular Surgical 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: None GI Surgical 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: Appendectomy, Colonoscopy, Other (See Below) Other GI Surgeries/Procedures: drainage of liver cyst Female Surgical 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: Hysterectomy Neurological Surgical 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: Lumbar Spine, Spinal Fusion Musculoskeletal Surgical 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: Arthroscopic Knee Social & Family History - Family History HEENT: Reports: Cataract Cardiac: Reports: Arrhythmia Respiratory: Reports: None GI: Reports: Cholelithiasis : Reports: None OBGYN: Reports: None Musculoskeletal: Reports: Arthritis Neurological: Reports: None Psychiatric: Reports: Depression Endocrine/Metabolic: Reports: None Hematologic: Reports: None Immunologic: Reports: None Oncologic: Reports: Lung - Tobacco Use Smoking Status *Q: Never Smoker Second Hand Smoke Exposure: No - Caffeine Use Caffeine Use: Reports: Coffee Caffeine Use Comment: 2-3 cups/daily - Alcohol Use Date of Last Drink: 06/09/17 Time of Last Drink: 22:00 - Recreational Drug Use Recreational Drug Use: No H&P Review of Systems - Review of Systems: Review Of Systems: See Below General: Denies: Fever, Chills, Weakness, Diaphoresis Pulmonary: Reports: No Symptoms Cardiovascular: Reports: No Symptoms Gastrointestinal: Reports: Abdominal Pain. Denies: Black Stool, Bloody Stool, Constipation, Diarrhea, Distension Genitourinary: Reports: No Symptoms Musculoskeletal: Reports: No Symptoms Exam - Exam Exam: See Below - Vital Signs Vital Signs: Last Vital Signs Temp 96.1 F 08/15/17 16:00 Pulse 100 08/15/17 16:00 Resp 16 08/15/17 16:00 BP 123/59 L 08/15/17 16:00 Pulse Ox 96 08/15/17 16:07 Weight: 133 lb - Exam Quality Assessment: Supplemental Oxygen, DVT Prophylaxis General: Alert, Oriented, Cooperative, Mild Distress Neck: Supple, Trachea Midline, +2 Carotid Pulse wo Bruit Lungs: Clear to Auscultation, Normal Respiratory Effort Cardiovascular: Regular Rate, Regular Rhythm, Normal S1, Normal S2. No: Systolic Murmur, Diastolic Murmur Extremities: Non-Tender, No Pedal Edema - Patient Data Lab Results Last 24 hrs: Laboratory Results - last 24 hr 08/15/17 08/15/17 08/15/17 Range/Units 07:50 07:50 11:01 WBC 5.4 (4.5-11.0) K/uL RBC 3.92 (3.30-5.50) M/uL Hgb 11.3 L (12.0-15.0) g/dL Hct 33.6 L (36.0-48.0) % MCV 86 (80-98) fL MCH 29 (27-31) pg MCHC 34 (32-36) % Plt Count 251 (150-400) K/uL Neut % (Auto) (36-66) % Lymph % (Auto) (24-44) % Wagoner % (Auto) (2-6) % Eos % (Auto) (2-4) % Baso % (Auto) (0-1) % Puncture Site ABG pH (7.350-7.450) ABG pCO2 (35.0-42.0) mmHg ABG pO2 (75.0-100.0) mmHg ABG HCO3 (22.0-26.0) mmol/L ABG Total CO2 (21.0-25.0) mmol/L ABG O2 Saturation (95.0-98.0) % ABG O2 Content (15.0-23.0) %vol ABG Base Excess mm/L ABG Hemoglobin (12.0-16.0) g/dL ABG Oxyhemoglobin % ABG Carboxyhemoglobin (0.0-1.6) % ABG Methemoglobin % Demetrius Test O2 Delivery Device Oxygen Flow Rate L Sodium 144 (140-148) mmol/L Potassium 3.6 (3.6-5.2) mmol/L Chloride 107 (100-108) mmol/L Carbon Dioxide 26 (21-32) mmol/L Anion Gap 10.8 (5.0-14.0) mmol/L BUN 9 (7-18) mg/dL Creatinine 0.8 (0.6-1.0) mg/dL Est Cr Clr Drug Dosing 52.01 mL/min Estimated GFR (MDRD) > 60 (>60) Glucose 160 H (74-106) mg/dL Calcium 8.6 (8.5-10.1) mg/dL Phosphorus 4.2 (2.5-4.9) mg/dL Magnesium 1.8 (1.8-2.4) mg/dL Total Bilirubin 0.7 D (0.2-1.0) mg/dL AST 26 (15-37) U/L ALT 48 (12-78) U/L Alkaline Phosphatase 71 (46-116) U/L Troponin I (0.000-0.056) ng/mL NT-Pro-B Natriuret Pep (5-125) pg/mL Total Protein 6.9 (6.4-8.2) g/dL Albumin 3.4 (3.4-5.0) g/dL Globulin 3.5 (2.3-3.5) g/dL Albumin/Globulin Ratio 1.0 L (1.2-2.2) Blood Type O POSITIVE Gel Antibody Screen Negative 08/15/17 08/15/17 08/15/17 Range/Units 13:59 14:02 14:02 WBC 9.7 (4.5-11.0) K/uL RBC 3.25 L (3.30-5.50) M/uL Hgb 9.3 L D (12.0-15.0) g/dL Hct 28.5 L (36.0-48.0) % MCV 88 (80-98) fL MCH 29 (27-31) pg MCHC 33 (32-36) % Plt Count 214 (150-400) K/uL Neut % (Auto) 82 H (36-66) % Lymph % (Auto) 12 L (24-44) % Wagoner % (Auto) 5 (2-6) % Eos % (Auto) 0 L (2-4) % Baso % (Auto) 0 (0-1) % Puncture Site Rt.radial ABG pH 7.426 (7.350-7.450) ABG pCO2 37.4 (35.0-42.0) mmHg ABG pO2 146.0 H (75.0-100.0) mmHg ABG HCO3 24.2 (22.0-26.0) mmol/L ABG Total CO2 22.2 (21.0-25.0) mmol/L ABG O2 Saturation 99.5 H (95.0-98.0) % ABG O2 Content 14.6 L (15.0-23.0) %vol ABG Base Excess 0.4 mm/L ABG Hemoglobin 10.4 L (12.0-16.0) g/dL ABG Oxyhemoglobin 97.8 % ABG Carboxyhemoglobin 1.2 (0.0-1.6) % ABG Methemoglobin 0.5 % Demetrius Test Passed O2 Delivery Device Nasal cannula Oxygen Flow Rate 4 L Sodium 142 (140-148) mmol/L Potassium 4.0 (3.6-5.2) mmol/L Chloride 107 (100-108) mmol/L Carbon Dioxide 22 (21-32) mmol/L Anion Gap 13.2 (5.0-14.0) mmol/L BUN 11 (7-18) mg/dL Creatinine 0.9 (0.6-1.0) mg/dL Est Cr Clr Drug Dosing 46.23 mL/min Estimated GFR (MDRD) > 60 (>60) Glucose 191 H (74-106) mg/dL Calcium 7.7 L (8.5-10.1) mg/dL Phosphorus (2.5-4.9) mg/dL Magnesium (1.8-2.4) mg/dL Total Bilirubin (0.2-1.0) mg/dL AST (15-37) U/L ALT (12-78) U/L Alkaline Phosphatase (46-116) U/L Troponin I (0.000-0.056) ng/mL NT-Pro-B Natriuret Pep 407 H (5-125) pg/mL Total Protein (6.4-8.2) g/dL Albumin (3.4-5.0) g/dL Globulin (2.3-3.5) g/dL Albumin/Globulin Ratio (1.2-2.2) Blood Type Gel Antibody Screen 08/15/17 Range/Units 14:02 WBC (4.5-11.0) K/uL RBC (3.30-5.50) M/uL Hgb (12.0-15.0) g/dL Hct (36.0-48.0) % MCV (80-98) fL MCH (27-31) pg MCHC (32-36) % Plt Count (150-400) K/uL Neut % (Auto) (36-66) % Lymph % (Auto) (24-44) % Wagoner % (Auto) (2-6) % Eos % (Auto) (2-4) % Baso % (Auto) (0-1) % Puncture Site ABG pH (7.350-7.450) ABG pCO2 (35.0-42.0) mmHg ABG pO2 (75.0-100.0) mmHg ABG HCO3 (22.0-26.0) mmol/L ABG Total CO2 (21.0-25.0) mmol/L ABG O2 Saturation (95.0-98.0) % ABG O2 Content (15.0-23.0) %vol ABG Base Excess mm/L ABG Hemoglobin (12.0-16.0) g/dL ABG Oxyhemoglobin % ABG Carboxyhemoglobin (0.0-1.6) % ABG Methemoglobin % Demetrius Test O2 Delivery Device Oxygen Flow Rate L Sodium (140-148) mmol/L Potassium (3.6-5.2) mmol/L Chloride (100-108) mmol/L Carbon Dioxide (21-32) mmol/L Anion Gap (5.0-14.0) mmol/L BUN (7-18) mg/dL Creatinine (0.6-1.0) mg/dL Est Cr Clr Drug Dosing mL/min Estimated GFR (MDRD) (>60) Glucose (74-106) mg/dL Calcium (8.5-10.1) mg/dL Phosphorus (2.5-4.9) mg/dL Magnesium (1.8-2.4) mg/dL Total Bilirubin (0.2-1.0) mg/dL AST (15-37) U/L ALT (12-78) U/L Alkaline Phosphatase (46-116) U/L Troponin I < 0.017 (0.000-0.056) ng/mL NT-Pro-B Natriuret Pep (5-125) pg/mL Total Protein (6.4-8.2) g/dL Albumin (3.4-5.0) g/dL Globulin (2.3-3.5) g/dL Albumin/Globulin Ratio (1.2-2.2) Blood Type Gel Antibody Screen Result Diagrams: 08/15/17 14:02 08/15/17 14:02 Consult PN Assessment/Plan Procedures: Procedures ASSAY OF MAGNESIUM (06/24/17) ASSAY OF PHOSPHORUS (06/24/17) ASSAY OF TROPONIN QUANT (06/21/17) CARDIOVASCULAR STRESS TEST (11/29/16) COMP SCREEN MAMMOGRAM ADD-ON (07/15/15) COMPLETE CBC AUTOMATED (06/24/17) COMPREHEN METABOLIC PANEL (06/24/17) CT ABD & PELV W/CONTRAST (06/21/17) CULTR BACTERIA EXCEPT BLOOD (06/24/17) CULTURE OTHR SPECIMN AEROBIC (06/24/17) CULTURE SCREEN ONLY (06/24/17) EMERGENCY DEPT VISIT (06/21/17) EMERGENCY DEPT VISIT (07/23/15) EMERGENCY DEPT VISIT (07/23/15) HT MUSCLE IMAGE SPECT MULT (11/29/16) HYDRATE IV INFUSION ADD-ON (06/21/17) HYDRATION IV INFUSION INIT (06/21/17) METABOLIC PANEL TOTAL CA (06/24/17) ROUTINE VENIPUNCTURE (06/24/17) SMEAR GRAM STAIN (06/24/17) TTE W/DOPPLER COMPLETE (07/11/15) Problem List Initiated/Reviewed/Updated: Yes My Orders Last 24 Hours: My Active Orders 08/15/17 14:00 EKG Documentation Completion [RC] ASDIRECTED EKG 12 Lead [EK] Stat Plan: ASSESSMENT AND RECOMMENDATIONS POSTOPERATIVE HYPOXIA-transient, likely related to lingering effects of anesthesia, pain medication, as well as hypoventilation related to abdominal discomfort from recent surgery. Evaluation including chest x-ray, arterial blood gases, BMP, CBC, troponin, and EKG were all unremarkable showing no significant abnormalities. Requesting Provider: CAL Date Consult Requested: 08/15/17 Reason for Consult: Postoperative hypoxia Patient History Reviewed: Yes
[2017-08-15] MEDS ORDERED: Coagulation Factor VIIa Recombinant (per MCG) 2 MG Vial IVPUSH ONE (17:45)
[2017-08-15] MEDS: Dextrose 5%-Lactated Ringers 1,000 ML IV SCH (17:55)
[2017-08-16] MEDS: Dextrose 5%-Lactated Ringers 1,000 ML IV SCH ×3 (02:31→23:09)
[2017-08-16] MEDS: cefOXitin 2 GM in Sodium Chloride 0.9% 50 ML IV SCH ×4 (02:32→20:56)
--- NOTE | 2017-08-16 08:00 | PN ---
DATE OF SERVICE: 08/16/2017 SUBJECTIVE: Kerry is postop day one. Right after surgery, her respirations decreased, her sats decreased. She was given a nebulizer and Lasix and improved. She received factor 7 due to an increased Jay Jay-Lazo drainage and has just slowed down after her factor 7. The total JESSICA drainage was 350. Since that time, she has been up ambulating. Her pain has been controlled using the TERMINAL WORKER. Blood pressure was low at 88/33. Rayshawn Mitchell MD. was notified. Her current blood pressure did come up to 103/44. This morning, she is alert and orientated. States she feels weak. Hemoglobin is 8.1, creatinine is 1.2, glucose 166, and calcium 7.8. AST 108 and ALT is 153. REVIEW OF SYSTEMS: Remainder of review of systems negative for any pertinent positives and negatives. OBJECTIVE: GENERAL: Kerry Hayward is a 67-year-old female. Color pale. VITAL SIGNS: TPR 96.9, 64, and 16. Blood pressure 98/40. Pulse oximetry 93% on no oxygen. HEENT: Negative. NECK: Supple. HEART: Regular rate and rhythm. LUNGS: Clear. ABDOMEN: Dressings dry and intact. Abdominal binder is on. JESSICA drain is draining a light pink serosanguineous drainage of 315 mL over the past 24 hours. Urine output 700. ASSESSMENT: Diagnostic laparoscopy with cholecystectomy and partial resection of the left lobe of liver, including portion of the cyst wall for chronic cholecystitis, and symptomatic right hepatic cyst. DATE OF SURGERY: 08/15/2017-Rayshawn Mitchell MD. Surgeon. PLAN: 1. Change the patient's status to inpatient. 2. Check CBC, CMP, mag, and phos in a.m.. 3. Decrease IV to 100 mL per hour. She already has a diet order to advance as tolerated and Percocet is ordered when she is able to be changed to oral pain medication. Home medications were put on hold, hydrochlorothiazide 25 mg, Cozaar 25 mg, and metoprolol 50 mg due to low blood pressure. Good pulmonary toilet. 4. We will evaluate p.r.n. or in a.m.. Olya Rankin PA-C /[id number]
[2017-08-16] MEDS: Losartan 50 MG Tab PO SCH (09:12)
[2017-08-16] MEDS: Hydrochlorothiazide 25 MG Tab PO SCH (09:13)
[2017-08-16] MEDS: Metoprolol Succinate 50 MG Tab.ER PO SCH (09:18)
[2017-08-16] MEDS: Acetaminophen/HYDROcodone 325-5 MG Tab PO PRN ×2 (13:18→19:40)
[2017-08-16] MEDS: Pantoprazole 40 MG Tab.CR PO SCH (15:25)
[2017-08-17] MEDS: Acetaminophen/HYDROcodone 325-5 MG Tab PO PRN ×4 (01:47→19:28)
[2017-08-17] MEDS: cefOXitin 2 GM in Sodium Chloride 0.9% 50 ML IV SCH ×4 (02:40→21:34)
[2017-08-17] MEDS ORDERED: Potassium Phosphates 15 MMOLE in Sodium Chloride 0.9% 250 ML IV ONE (10:00)
[2017-08-17] MEDS: Magnesium Sulfate/Water 2 GM in Premix Bag 1 BAG IV SCH ×3 (10:17→22:27)
[2017-08-17] MEDS: Docusate Sodium 100 MG Cap PO SCH ×2 (10:52→20:54)
[2017-08-17] MEDS: Metoprolol Succinate 50 MG Tab.ER PO SCH (10:58)
[2017-08-17] MEDS: Bisacodyl 5 MG Tab PO SCH ×2 (10:58→20:54)
[2017-08-17] MEDS: Hydrochlorothiazide 25 MG Tab PO SCH (10:58)
[2017-08-17] MEDS: Losartan 50 MG Tab PO SCH (10:59)
[2017-08-17] MEDS: Potassium Phosphates 20 MMOLE in Sodium Chloride 0.9% 250 ML IV SCH ×3 (12:46→19:44)
[2017-08-17] MEDS: Pantoprazole 40 MG Tab.CR PO SCH (16:02)
[2017-08-17] MEDS: Dextrose 5%-Lactated Ringers 1,000 ML IV SCH (19:05)
[2017-08-17] MEDS ORDERED: Sodium Chloride 0.9% 1,000 ML IV SCH (22:15)
[2017-08-18] MEDS: Acetaminophen/HYDROcodone 325-5 MG Tab PO PRN ×4 (00:57→19:48)
[2017-08-18] MEDS: cefOXitin 2 GM in Sodium Chloride 0.9% 50 ML IV SCH (03:16)
[2017-08-18] MEDS: Magnesium Sulfate/Water 2 GM in Premix Bag 1 BAG IV SCH ×2 (04:43→11:48)
[2017-08-18] MEDS ORDERED: Sodium Chloride 0.9% 10 ML Syringe IV PRN (08:03)
[2017-08-18] MEDS: Losartan 50 MG Tab PO SCH (08:38)
[2017-08-18] MEDS: Docusate Sodium 100 MG Cap PO SCH ×2 (08:38→20:00)
[2017-08-18] MEDS: Hydrochlorothiazide 25 MG Tab PO SCH (08:39)
[2017-08-18] MEDS: Bisacodyl 5 MG Tab PO SCH ×2 (08:39→20:00)
[2017-08-18] MEDS: Metoprolol Succinate 50 MG Tab.ER PO SCH (08:41)
[2017-08-18] MEDS: Pantoprazole 40 MG Tab.CR PO SCH (15:08)
[2017-08-18] MEDS: Magnesium Oxide 400 MG Tab PO SCH (17:13)
[2017-08-19] MEDS: Acetaminophen/HYDROcodone 325-5 MG Tab PO PRN ×2 (02:28→08:12)
[2017-08-19 07:25] VITALS: BP 119/59
[2017-08-19] MEDS: Bisacodyl 5 MG Tab PO SCH (08:11)
[2017-08-19] MEDS: Docusate Sodium 100 MG Cap PO SCH (08:11)
[2017-08-19] MEDS: Hydrochlorothiazide 25 MG Tab PO SCH (08:11)
[2017-08-19] MEDS: Metoprolol Succinate 50 MG Tab.ER PO SCH (08:11)
[2017-08-19] MEDS: Losartan 50 MG Tab PO SCH (08:11)
[2017-08-19] MEDS: Magnesium Oxide 400 MG Tab PO SCH (08:12)
--- NOTE | 2017-08-19 09:37 | PN ---
DATE OF SERVICE: 08/18/2017 The patient has been afebrile with stable vital signs. Her laboratory values appear to be better today. Her hemoglobin is up to 10 after transfusion yesterday, and potassium and phosphate have normalized. She is still a little bit weak and has not moved her bowels yet. We will work on getting her bowels going today, and most likely will be discharged home tomorrow. Rayshawn Mitchell MD /[id number]
--- NOTE | 2017-08-19 10:52 | PN ---
DATE OF SERVICE: 08/17/2017 The patient has been afebrile with stable vital signs. She has not moved her bowels as of yet. She is still a little bit weak. Her oral intake was fairly good. Lab showed low potassium, phosphate, and hemoglobin stable at 8.1. I think we can give her 1 unit of packed RBCs today and supplement the potassium, phosphate, and magnesium. We will give her some bowel stimulation, switch over to oral pain medication. She may be ready for discharge home tomorrow. Rayshawn Mitchell MD /[id number]
--- NOTE | 2017-08-20 05:08 | DISCH ---
ADMISSION DIAGNOSES: Liver cyst, cholecystitis, epigastric pain, and essential hypertension. DISCHARGE DIAGNOSIS: Diagnostic laparoscopy with cholecystectomy and partial resection of the left lobe of liver including portion of the cyst wall for chronic cholecystitis and symptomatic right hepatic cyst. Date of surgery is 08/15/2017. Surgeon, Dr. Rayshawn Mitchell. Hypoxia during initial postoperative period. HISTORY: Kerry Hayward is a 67-year-old female with abdominal pain and history of benign hepatic cyst. After preoperative evaluation and discussion of possible risks and possible complications, she wished to proceed with surgical procedure. HOSPITAL COURSE: Kerry had her surgery on 08/15/2017. Immediately postoperatively, her respirations decreased, her saturations decreased. She was given a nebulizer and Lasix, and her respiratory status improved. She also had a hospitalist consult, Husam Darling M.D. Kerry did receive factor VII for increased Jay Jay-Lazo drainage, which slowed down after factor VII. On 08/17/2017, she received 1 unit of packed red blood cells for a hemoglobin of 8.1, and on 08/18, her hemoglobin increased to 10.1. On 08/19/2017, vital signs were stable, pain was managed, activity was good, and Kerry was able to be discharged to home. PHYSICAL EXAMINATION: GENERAL: Kerry is a 67-year-old female, alert, orientated. Height is 5 feet 1.42 inches. Weight is 133 pounds. HEENT: Negative. NECK: Supple. HEART: Regular rate and rhythm. LUNGS: Clear. ABDOMEN: JESSICA drain will be discontinued prior to discharge, 4x4 will be placed over JESSICA drain site. Sutures intact. Abdominal binder is on. EXTREMITIES: Without peripheral edema. DISPOSITION: Discharged to home. CONDITION: Stable and improving. FOLLOWUP APPOINTMENT: Olya Rankin PA-C on 08/26/2017 at 9:00 a.m., to check a CBC at 0800 hours before the clinic appointment. MEDICATIONS: New prescription is [place] 10/325 mg, take 1/2 tablet every 4 hours p.r.n. pain, #40. She is to resume her home medications of aspirin 81 mg daily, vitamin D3 one tablet daily, hydrochlorothiazide 25 mg oral daily, losartan 25 mg oral daily, and metoprolol 1 tablet oral daily. DIET AFTER DISCHARGE: Usual diet as tolerated. Drink 8 to 10 glasses of water a day. ACTIVITY: As tolerated. No lifting greater than 10 pounds for 2 [address], do not drive on pain medication. May shower. DISCHARGE INSTRUCTIONS: Notify provider if any fever, increased pain, nausea or vomiting. Keep site clean and dry. Wear abdominal binder for 2 weeks and as tolerated. Use incentive spirometer 10 times every hour while awake for 1 week.
--- NOTE | 2017-08-22 16:23 | OR ---
DATE OF PROCEDURE: 08/15/2017 PREOPERATIVE DIAGNOSES: 1. Probable chronic cholecystitis. 2. Recurrent right hepatic cyst. POSTOPERATIVE DIAGNOSES: 1. Chronic cholecystitis. 2. Probably symptomatic recurrent right hepatic cyst. OPERATIVE PROCEDURES: Diagnostic laparoscopy with; 1. Cholecystectomy (91378). 2. Partial resection of right hepatic lobe of liver including a portion of cyst wall (63476). ANESTHESIA: General. ASSISTANTS: Olya Rankin PA-C, and SABRINA Dixon3. INDICATION FOR PROCEDURE: This is a 67-year-old presenting with some recurrent ongoing discomfort in the right upper quadrant. Imaging revealed recurrence of a large hepatic cyst present, despite having been partially resected recently. The patient also reports that she had quite a bit of discomfort with the ultrasound probe over the gallbladder. Given this, the plan is to proceed with a diagnostic laparoscopy, cholecystectomy, and then drainage of the right hepatic cyst, at this time, with somewhat different approach, so as to avoid this becoming recurrent once again. Potential risks of the procedure including bleeding, infection, and injury to underlying viscera such as the common bile duct, possible recurrence of the cyst once again, as well as the remote possibility of cardiopulmonary, septic, or hemorrhagic complications leading to were all discussed, and the patient wishes to proceed. DETAILS OF PROCEDURE: The patient was taken to the operating room and placed in the supine position. After general endotracheal anesthesia was induced, the abdomen was prepped and draped. A transverse epigastric incision was made. The peritoneal cavity was entered under direct vision with an Optiview trocar and inflated to 15 mmHg pressure with CO2. Laparoscope was then reinserted. No underlying trocar insertion site injuries were seen. At this point, bilateral subcostal transversus abdominis plane blocks were placed with direct visualization of the tip of the needle in the transversus abdominis muscle plane, and the standard solution was injected bilaterally. Following this, eventually 4 additional trocars were placed across the upper and mid abdomen, and general exploration was undertaken. The cyst at this point was not entirely visible. The gallbladder was quite thickened and did have a degree of chronic cholecystitis and based on gross visualization, it certainly met criteria for cholecystectomy. To determine the relationship of the gallbladder to the cyst, the abdomen at that point was deflated and ultrasound obtained on the surface of the abdomen, which showed the cyst beginning just to the right and somewhat superior to the fundus of the gallbladder. With this landmark being established, the attention was taken initially to the cholecystectomy. The gallbladder was retracted anteriorly and laterally and dissection with Harmonic scalpel began on the gallbladder neck and continued around the gallbladder neck- cystic duct junction. Once that area was well delineated as was the cystic artery, both structures were clipped 3 times proximally and once distally, and the gallbladder neck- cystic duct junction divided. The gallbladder was then dissected off the gallbladder bed using Harmonic scalpel and delivered through the epigastric trocar site. Off the field, the gallbladder was opened. It was noted to contain sludge-like material within it, i.e. tiny sandlike stones, and had a visible cholesterolosis on its mucosal surface. At this point, the spinal needle was placed through the abdominal wall in the area expected to be occupied by the liver system. Some fluid was then obtained. This appeared to be somewhat blood-tinged fluid, likely related to previous procedure. At that point then, electrocautery was used to open up the cyst and a wide area on the anterior and lateral aspect of the cyst was then excised, removing that portion of the liver along with portion of the cyst wall. It was notable that the previously drained surface of the cyst, which was lateral, had become densely adherent to the lateral abdominal wall, thus resulting in recurrence of the cyst. This cyst was once again drained quite widely, removing roughly one- third of the surface of the cyst so as to minimize chances of it recurring once again. The cystic wall, once again, appeared to be a smooth surface consistent with a benign cyst. At that point, no further problems were noted. Hemostasis was confirmed. A single [place]- Lazo drain was placed in the area of the gallbladder fossa, adjacent to the cyst drainage site, and taken out through the right lateral trocar site. Trocars were removed, and the fascia at the 12 mm sites was closed with 0 Vicryl stitch, and the skin with 4-0 Vicryl skin stitch. Dressing was applied. The patient was taken to the recovery room in a satisfactory condition. Physician assistant professor of communication, Olya Rankin, played an essential role in assisting in this case, helping to position the patient, retract structures as needed, as well as suturing and cutting sutures when indicated. Her presence improved patient safety and decreased the operative time. Rayshawn Mitchell MD /[id number]
== END 2017-08-19 10:19 | disposition home or self-care (01) | DRG 419 ==
LOC: JP.SDS 07:03 → JP.2SS 11:40 → JP.SDS 08-16 07:08
PROVIDERS: ADMIT Surgery; ATTEND Surgery
PROC: 0FT44ZZ Resection of Gallbladder, Percutaneous Endoscopic Approach (ICD-10-PCS; 2017-08-15)
PROC: 0FB14ZX Excision of Right Lobe Liver, Percutaneous Endoscopic Approach, Diagnostic (ICD-10-PCS; 2017-08-15)
PROC: 30233N1 Transfusion of Nonautologous Red Blood Cells into Peripheral Vein, Percutaneous Approach (ICD-10-PCS; principal; 2017-08-17)
DX: K81.1 Chronic cholecystitis (principal); K76.89 Other specified diseases of liver; R09.02 Hypoxemia; D64.9 Anemia, unspecified; I12.9 Hypertensive chronic kidney disease with stage 1 through stage 4 chronic kidney disease, or unspecified chronic kidney disease; N18.2 Chronic kidney disease, stage 2 (mild); K21.9 Gastro-esophageal reflux disease without esophagitis; Z98.1 Arthrodesis status; M54.9 Dorsalgia, unspecified; G89.29 Other chronic pain; H54.7 Unspecified visual loss; Z79.82 Long term (current) use of aspirin
CPT/HCPCS: 36415 ×2; 36600; 47120; 47562; 71046 ×2; 80048; 80053 ×2; 82803; 83735 ×2; 83880; 84100 ×2; 84484; 85025; 85027 ×2; 86850; 86900; 86901; 93005; 94640; 94762; A9270 ×3; C9113; J0171; J0330; J0694 ×4; J1100 ×2; J1170; J1940; J2405 ×3; J2704; J2710; J2795; J3010 ×2; J3410; J7030; J7042 ×3; J7050 ×5; J7120; J7189; J7620; 36430; 86920; 86922; 88304; 88307; J2185; J3475; J3490; J7040; P9016

== ENCOUNTER 2017-11-10 09:14 | Emergency (ER) | payer MEDICARE, BC ==
[2017-11-10 09:32] VITALS: BP 151/62
--- NOTE | 2017-11-10 09:57 | EDM.PDOC ---
ED HPI GENERAL MEDICAL PROBLEM - General Chief Complaint: Bite:Animal, Insect Stated Complaint: BUG BITE ON BACK Time Seen by Provider: 11/10/17 09:56 Source of Information: Reports: Patient History Limitations: Reports: No Limitations - History of Present Illness INITIAL COMMENTS - FREE TEXT/NARRATIVE: pt noticed a red spot on her left side. She thought she had a infected bug bite. Onset: Other (noticed the redness today. ) Duration: Hour(s): Location: Reports: Chest Associated Symptoms: Reports: No Other Symptoms - Related Data Allergies Allergy/AdvReac Type Severity Reaction Status Date / Time lidocaine AdvReac Confusion Verified 11/10/17 09:34 Home Meds: Home Meds Aspirin [Adult Low Dose Aspirin EC] 81 mg PO DAILY 09/24/16 [History] Hydrochlorothiazide 25 mg PO DAILY 06/21/17 [History] Losartan [Cozaar] 25 mg PO DAILY 06/21/17 [History] Cholecalciferol (Vitamin D3) [Vitamin D3] 1 tab PO DAILY 08/15/17 [History] Metoprolol Succinate 100 mg PO DAILY 08/15/17 [History] Past Medical History HEENT 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: Cataract, Impaired Vision Cardiovascular 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: Arrhythmia, Hypertension Gastrointestinal 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: GERD Genitourinary 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: None, Other (See Below) Other Genitourinary History: bladder and rectal prolapse repair 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: Musculoskeletal 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: Arthritis, Back Pain, Chronic, Osteoporosis Neurological 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: None Psychiatric 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: Depression - Infectious Disease History Infectious Disease 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: Chicken Pox, Measles, Meningitis, Shingles - Past Surgical History HEENT Surgical 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: Cataract Surgery, Tonsillectomy Cardiovascular Surgical 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: None GI Surgical 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: Appendectomy, Cholecystectomy, Colonoscopy, Other (See Below) Other GI Surgeries/Procedures: drainage of liver cyst Female Surgical 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: Hysterectomy Neurological Surgical 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: Lumbar Spine, Spinal Fusion Musculoskeletal Surgical 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: Arthroscopic Knee Social & Family History - Family History HEENT: Reports: Cataract Cardiac: Reports: Arrhythmia Respiratory: Reports: None GI: Reports: Cholelithiasis : Reports: None OBGYN: Reports: None Musculoskeletal: Reports: Arthritis Neurological: Reports: None Psychiatric: Reports: Depression Endocrine/Metabolic: Reports: None Hematologic: Reports: None Immunologic: Reports: None Oncologic: Reports: Lung - Tobacco Use Smoking Status *Q: Never Smoker - Caffeine Use Caffeine Use: Reports: Coffee Caffeine Use Comment: 2-3 cups/daily - Recreational Drug Use Recreational Drug Use: No ED ROS GENERAL - Review of Systems Review Of Systems: See Below Constitutional: Reports: No Symptoms HEENT: Reports: No Symptoms Respiratory: Reports: No Symptoms Cardiovascular: Reports: No Symptoms Endocrine: Reports: No Symptoms GI/Abdominal: Reports: No Symptoms : Reports: No Symptoms Musculoskeletal: Reports: Other (pt hs a red spot on the left lateral chest area. ) Skin: Reports: No Symptoms ED EXAM, ANIMAL BITE - Physical Exam Exam: See Below Text/Narrative:: pt arrived with a red spot on the lef lateral chest which the pt thought was a bug bite. Exam Limited By: No Limitations General Appearance: Alert Ears: Normal TMs Nose: Normal Inspection Throat/Mouth: Normal Inspection Neck: Normal Inspection Respiratory/Chest: Other (pt had a red spot on the left later chest. Whn this is magnified there is a tiny deer tick in the center This was removed without difficulty) Cardiovascular: Regular Rate, Rhythm Course - Vital Signs Last Recorded V/S: Last Vital Signs Temp 35.4 C 11/10/17 09:30 Pulse 57 L 11/10/17 09:30 Resp 15 11/10/17 09:30 BP 151/62 H 11/10/17 09:30 Pulse Ox 100 11/10/17 09:30 - Re-Assessments/Exams Free Text/Narrative Re-Assessment/Exam: 11/10/17 10:07 The deer tick was removed without difficulty Departure - Departure Time of Disposition: 09:57 Disposition: Home, Self-Care 01 Condition: Fair Clinical Impression: Dermacentor andersoni tick bite - Discharge Information Referrals: Leticia Carrasco PA [Primary Care Provider] - Forms: ED Department Discharge Care Plan Goals: Moist packs to area. doxcyline 100mg bid for 1 week.
== END 2017-11-10 10:10 | disposition home or self-care (01) ==
LOC: JP.ED 09:14
DX: S20.362A Insect bite (nonvenomous) of left front wall of thorax, initial encounter (principal); M19.90 Unspecified osteoarthritis, unspecified site; I10 Essential (primary) hypertension; Z79.82 Long term (current) use of aspirin; Z79.899 Other long term (current) drug therapy; Z88.8 Allergy status to other drugs, medicaments and biological substances; W57.XXXA Bitten or stung by nonvenomous insect and other nonvenomous arthropods, initial encounter
CPT/HCPCS: 99282

== ENCOUNTER 2020-01-17 12:37 | Emergency (ER) | payer MEDICARE ==
--- NOTE | 2020-01-17 14:01 | EDM.PDOC ---
ED HPI GENERAL MEDICAL PROBLEM - General Chief Complaint: General Stated Complaint: BODY ACHES, EXHAUSTED Time Seen by Provider: 01/17/20 13:35 Source of Information: Reports: Patient, RN History Limitations: Reports: No Limitations - History of Present Illness INITIAL COMMENTS - FREE TEXT/NARRATIVE: Kerry is a 69 yo female that comes to ED with vague c/o fatigue with occasional breathlessness, abdominal pains, and achiness ongoing for a month. She states that she is able to perform her daily tasks but they wear her out. She has achiness in her right neck and left upper arm at times- comes and goes without any reason. Denies any recent med changes. Has had an increase in the number of stools that she is having a day over the past month- somedays she is having 2-3 and sometimes up to 4-5. She has limited her activities outside of the house due to concerns of stool incontinence. States that once she has the urge to defecate- she needs to get to the bathroom fast. Has had a decreased appetite over the past month-states that she's notices her clothes fitting a little looser but not sure about weight loss. For the abdominal pain- sometimes it is epigastric or across the upper quadrants, and sometimes it's lower abdominal. hx of liver cyst drainage, cholecystectomy, and hysterectomy. She still has her ovaries. Denies fever, cough, chest pains, sore throat, urinary infection symptoms, or tick bites. States that she sleeps well at night. Does not think she snores. Onset: Gradual Duration: Week(s): (4) - Related Data Allergies Allergy/AdvReac Type Severity Reaction Status Date / Time lidocaine AdvReac Confusion Verified 01/17/20 13:18 Home Meds: Home Meds Losartan [Cozaar] 25 mg PO DAILY 06/21/17 [History] hydroCHLOROthiazide [Hydrochlorothiazide] 25 mg PO DAILY 06/21/17 [History] Cholecalciferol (Vitamin D3) [Vitamin D3] 2,000 unit PO DAILY 08/15/17 [History] Metoprolol Succinate 50 mg PO DAILY 08/15/17 [History] Escitalopram [Lexapro] 10 mg PO DAILY 05/06/18 [History] Magnesium 250 mg PO DAILY 05/06/18 [History] Acetaminophen [Tylenol] 650 mg PO Q4H PRN #90 tablet 05/10/18 [Rx] Omeprazole Magnesium [Prilosec Otc] 20 mg PO DAILY 01/17/20 [History] Past Medical History HEENT 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: Cataract, Impaired Vision Other HEENT History: wears glasses Cardiovascular 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: Arrhythmia, Hypertension Gastrointestinal 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: GERD, Hemorrhoids Genitourinary 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: Other (See Below) Other Genitourinary History: bladder and rectal prolapse 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 rectocele/cysotcele repair Female Surgical 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: Hysterectomy Neurological Surgical 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: Lumbar Spine, Spinal Fusion Musculoskeletal Surgical 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: Arthroscopic Knee Social & Family History - Family History HEENT: Reports: Cataract Cardiac: Reports: Arrhythmia, [place] Respiratory: Reports: None GI: Reports: Cholelithiasis : Reports: None OBGYN: Reports: None Musculoskeletal: Reports: Arthritis Neurological: Reports: CVA Psychiatric: Reports: Depression Endocrine/Metabolic: Reports: None Hematologic: Reports: None Immunologic: Reports: None Oncologic: Reports: Lung - Tobacco Use Smoking Status *Q: Never Smoker - Caffeine Use Caffeine Use: Reports: Coffee Caffeine Use Comment: 2-3 cups/daily - Recreational Drug Use Recreational Drug Use: No ED ROS GENERAL - Review of Systems Review Of Systems: See Below Constitutional: Reports: Malaise, Weakness, Fatigue, Decreased Appetite, Weight Loss. Denies: Fever HEENT: Reports: No Symptoms. Denies: Sinus Problem, Throat Pain Respiratory: Reports: Other ("occassional breathlessness"). Denies: Wheezing, Cough Cardiovascular: Reports: No Symptoms. Denies: Chest Pain, Palpitations Endocrine: Reports: Fatigue GI/Abdominal: Reports: Abdominal Pain, Black Stool, Decreased Appetite, Nausea. Denies: Bloody Stool ("at times"), Mucous in Stool : Reports: No Symptoms. Denies: Flank Pain Musculoskeletal: Reports: Neck Pain (right anteriolateral side), Arm Pain (left upper arm) Skin: Reports: No Symptoms Neurological: Reports: No Symptoms Psychiatric: Reports: No Symptoms. Denies: Depression Hematologic/Lymphatic: Reports: No Symptoms Immunologic: Reports: No Symptoms ED EXAM, GENERAL - Physical Exam Exam: See Below Exam Limited By: No Limitations General Appearance: Alert, No Apparent Distress Ears: Normal External Exam, Normal Canal, Normal TMs Nose: Normal Inspection, Normal Mucosa, No Blood Throat/Mouth: Normal Inspection, Normal Oropharynx Head: Atraumatic, Normocephalic Neck: Normal Inspection, Supple, Non-Tender, Full Range of Motion. No: Lymphadenopathy (R), Lymphadenopathy (L) Respiratory/Chest: No Respiratory Distress, Lungs Clear, Normal Breath Sounds, No Accessory Muscle Use, Chest Non-Tender Cardiovascular: Normal Peripheral Pulses, Regular Rate, Rhythm, No Murmur Peripheral Pulses: 2+: Radial (L), Radial (R), Dorsalis Pedis (L), Dorsalis Pedis (R) GI/Abdominal: Normal Bowel Sounds, Soft, Tender. No: Mass (Female) Exam: Deferred Rectal (Female) Exam: Deferred Back Exam: Normal Inspection. No: CVA Tenderness (R), CVA Tenderness (L), Paraspinal Tenderness Extremities: Normal Inspection, Normal Capillary Refill Neurological: Alert, Oriented, No Motor/Sensory Deficits Psychiatric: Normal Affect, Normal Mood Skin Exam: Warm, Dry, Intact Lymphatic: No Adenopathy EKG INTERPRETATION EKG Interpretation Comments: Sinus bradycardia rate 49 Course - Vital Signs Last Recorded V/S: Last Vital Signs Temp 96.5 F L 01/17/20 13:09 Pulse 50 L 01/17/20 17:10 Resp 14 01/17/20 17:10 BP 173/70 H 01/17/20 17:10 Pulse Ox 99 01/17/20 17:10 - Orders/Labs/Meds Orders: Active Orders 24 hr Category Date Time Status EKG Documentation Completion [RC] ASDIRECTED Care 01/17/20 17:10 Ordered Chest 1V Frontal [CR] Stat Exams 01/17/20 16:23 Taken OVA + PARASITE EXAM Stat Lab 01/17/20 13:47 Ordered WBC, STOOL [OP] Stat Lab 01/17/20 13:44 Ordered Sodium Chloride 0.9% [Normal Saline] 1,000 ml Med 01/17/20 14:41 Active IV .BOLUS EKG 12 Lead [EK] Routine Ther 01/17/20 17:10 Ordered Medication Orders Sodium Chloride (Normal Saline) 1,000 mls @ 250 mls/hr IV .BOLUS ONE Stop: 01/17/20 18:40 Last Admin: 01/17/20 15:07 Dose: 250 mls/hr Documented by: AFIA Labs: Laboratory Tests 01/17/20 01/17/20 01/17/20 Range/Units 13:07 14:00 14:04 WBC 5.3 (4.5-11.0) K/uL RBC 4.28 (3.30-5.50) M/uL Hgb 12.4 (12.0-15.0) g/dL Hct 37.1 (36.0-48.0) % MCV 87 (80-98) fL MCH 29 (27-31) pg MCHC 33 (32-36) % Plt Count 201 (150-400) K/uL Neut % (Auto) 52 (36-66) % Lymph % (Auto) 32 (24-44) % [place] % (Auto) 15 H (2-6) % Eos % (Auto) 1 L (2-4) % Baso % (Auto) 1 (0-1) % Sodium (140-148) mmol/L Potassium (3.6-5.2) mmol/L Chloride (100-108) mmol/L Carbon Dioxide (21-32) mmol/L Anion Gap (5.0-14.0) mmol/L BUN (7-18) mg/dL Creatinine (0.6-1.0) mg/dL Est Cr Clr Drug Dosing mL/min Estimated GFR (MDRD) (>60) Glucose (74-106) mg/dL Calcium (8.5-10.1) mg/dL Magnesium (1.8-2.4) mg/dL Total Bilirubin (0.2-1.0) mg/dL AST (15-37) U/L ALT (12-78) U/L Alkaline Phosphatase (46-116) U/L C-Reactive Protein (0.0-0.3) mg/dL NT-Pro-B Natriuret Pep 282 H (5-125) pg/mL Total Protein (6.4-8.2) g/dL Albumin (3.4-5.0) g/dL Globulin (2.3-3.5) g/dL Albumin/Globulin Ratio (1.2-2.2) TSH, Ultra Sensitive (0.358-3.740) uIU/mL Urine Color Yellow (YELLOW) Urine Appearance Clear (CLEAR) Urine pH 7.0 (5.0-8.0) Ur Specific [place] 1.020 (1.008-1.030) Urine Protein Negative (NEGATIVE) mg/dL Urine Glucose (UA) Negative (NEGATIVE) mg/dL Urine Ketones Negative (NEGATIVE) mg/dL Urine Occult Blood Trace-intact H (NEGATIVE) Urine Nitrite Negative (NEGATIVE) Urine Bilirubin Negative (NEGATIVE) Urine Urobilinogen 0.2 (0.2-1.0) EU/dL Ur Leukocyte Esterase Small (NEGATIVE) Urine RBC 0-5 (0-5) Urine WBC 0-5 (0-5) Ur Epithelial Cells Not seen Amorphous Sediment Not seen Urine Bacteria Not seen Urine Mucus Rare 01/17/20 01/17/20 01/17/20 Range/Units 14:04 14:48 14:56 WBC (4.5-11.0) K/uL RBC (3.30-5.50) M/uL Hgb (12.0-15.0) g/dL Hct (36.0-48.0) % MCV (80-98) fL MCH (27-31) pg MCHC (32-36) % Plt Count (150-400) K/uL Neut % (Auto) (36-66) % Lymph % (Auto) (24-44) % [place] % (Auto) (2-6) % Eos % (Auto) (2-4) % Baso % (Auto) (0-1) % Sodium 139 L (140-148) mmol/L Potassium 2.9 L* (3.6-5.2) mmol/L Chloride 104 (100-108) mmol/L Carbon Dioxide 30 (21-32) mmol/L Anion Gap 7.9 (5.0-14.0) mmol/L BUN 7 (7-18) mg/dL Creatinine 1.0 (0.6-1.0) mg/dL Est Cr Clr Drug Dosing 39.50 mL/min Estimated GFR (MDRD) 55 L (>60) Glucose 87 (74-106) mg/dL Calcium 8.4 L (8.5-10.1) mg/dL Magnesium 2.0 (1.8-2.4) mg/dL Total Bilirubin 0.6 (0.2-1.0) mg/dL AST 16 (15-37) U/L ALT 17 (12-78) U/L Alkaline Phosphatase 55 (46-116) U/L C-Reactive Protein 0.24 (0.0-0.3) mg/dL NT-Pro-B Natriuret Pep (5-125) pg/mL Total Protein 6.5 (6.4-8.2) g/dL Albumin 3.5 (3.4-5.0) g/dL Globulin 3.0 (2.3-3.5) g/dL Albumin/Globulin Ratio 1.2 (1.2-2.2) TSH, Ultra Sensitive 1.104 (0.358-3.740) uIU/mL Urine Color (YELLOW) Urine Appearance (CLEAR) Urine pH (5.0-8.0) Ur Specific [place] (1.008-1.030) Urine Protein (NEGATIVE) mg/dL Urine Glucose (UA) (NEGATIVE) mg/dL Urine Ketones (NEGATIVE) mg/dL Urine Occult Blood (NEGATIVE) Urine Nitrite (NEGATIVE) Urine Bilirubin (NEGATIVE) Urine Urobilinogen (0.2-1.0) EU/dL Ur Leukocyte Esterase (NEGATIVE) Urine RBC (0-5) Urine WBC (0-5) Ur Epithelial Cells Amorphous Sediment Urine Bacteria Urine Mucus Meds: Medications Generic Name Dose Route Start Last Admin Trade Name Freq PRN Reason Stop Dose Admin Sodium Chloride 1,000 mls @ 250 mls/hr 01/17/20 14:41 01/17/20 15:07 Normal Saline IV 01/17/20 18:40 250 mls/hr .BOLUS ONE Administration Discontinued Medications Generic Name Dose Route Start Last Admin Trade Name Freq PRN Reason Stop Dose Admin Potassium Chloride 20 meq/ 100 mls @ 50 mls/hr 01/17/20 14:39 01/17/20 15:06 Premix IV 01/17/20 16:38 50 mls/hr ONETIME ONE Administration Potassium Chloride 40 meq 01/17/20 14:39 01/17/20 15:06 Klor-Con M20 PO 01/17/20 14:40 40 meq ONETIME ONE Administration - Radiology Interpretation Free Text/Narrative:: chest x-ray- ER read shows no changes from previous chest xray. - Re-Assessments/Exams Free Text/Narrative Re-Assessment/Exam: 01/17/20 17:10- heart rate found to be in the 40s- EKG ordered- sinus rosangela cardia. Advised pt to cut her metoprolol to 25 mg daily and increase her Losartan to 50 mg daily. Follow-up with Kathy Carrasco. Pt was not able to leave a stool sample here. Departure - Departure Time of Disposition: 17:32 Disposition: Home, Self-Care 01 Clinical Impression: Hypokalemia, Fatigue, Sinus bradycardia, Abdominal pain in female, Hematuria - Discharge Information *PRESCRIPTION DRUG MONITORING PROGRAM REVIEWED*: No *COPY OF PRESCRIPTION DRUG MONITORING REPORT IN PATIENT REYNOLD: No Instructions: Fatigue, Hypokalemia, Bradycardia, Adult Referrals: Leticia Carrasco PA [Primary Care Provider] - Forms: ED Department Discharge Additional Instructions: You have been worked up for fatigue and abdominal tenderness. Your lab work revealed a low potassium level of 2.9 (replacement in ER with PO 40mEq and IV 20mEq). Your WBC count (anemia/infection), TSH (thyroid), CRP (infection/ inflammation), and LFTs (liver) tests were all in normal range. Copies of your lab work have been given to you. Your heart rate is in the 40s and this could be contributing to your fatigue (decreased cardiac output). Your metoprolol s uccinate could be causing the decreased heart rate. Recommend cutting your metoprolol succinate to 25 mg daily and increasing your Losartan (Cozaar) to 50 mg daily. Recommend you follow-up with Kathy Carrasco for further work-up for your fatigue. You have been placed on the follow-up [facility] list for them to call you for an appointment. Call or return to ED with any worsening of symptoms, fever, bloody stools, or any other concerns. Sepsis Event Note (ED) - Evaluation Sepsis Screening Result: No Definite Risk - Focused Exam Vital Signs: Vital Signs Temp Pulse Resp BP Pulse Ox 01/17/20 17:10 50 L 14 173/70 H 99 01/17/20 16:55 49 L 138/67 01/17/20 15:29 47 L 174/76 H 97 01/17/20 15:25 47 L 174/76 H 01/17/20 15:07 49 L 151/70 H 01/17/20 14:46 54 L 170/69 H 01/17/20 13:09 96.5 F L 63 16 164/69 H 96 01/17/20 12:59 96.5 F L 63 16 164/69 H 96 - My Orders Last 24 Hours: My Active Orders 01/17/20 13:44 WBC, STOOL [OP] Stat 01/17/20 13:47 OVA + PARASITE EXAM Stat 01/17/20 14:41 Sodium Chloride 0.9% [Normal Saline] 1,000 ml IV .BOLUS 01/17/20 16:23 Chest 1V Frontal [CR] Stat 01/17/20 17:10 EKG Documentation Completion [RC] ASDIRECTED EKG 12 Lead [EK] Routine - Assessment/Plan Last 24 Hours: My Active Orders 01/17/20 13:44 WBC, STOOL [OP] Stat 01/17/20 13:47 OVA + PARASITE EXAM Stat 01/17/20 14:41 Sodium Chloride 0.9% [Normal Saline] 1,000 ml IV .BOLUS 01/17/20 16:23 Chest 1V Frontal [CR] Stat 01/17/20 17:10 EKG Documentation Completion [RC] ASDIRECTED EKG 12 Lead [EK] Routine Plan: discharge home with medication changes (decrease metoprolol and increase Losartan). Follow-up with Kathy Carrasco in [address] [facility] follow-up call list. Pt agreeable to plan.
[2020-01-17] MEDS ORDERED: Potassium Chloride 20 MEQ Tab.ER PO ONE (14:39)
[2020-01-17] MEDS ORDERED: Potassium Chloride 20 MEQ in Premix Bag 1 BAG IV ONE (14:39)
[2020-01-17] MEDS ORDERED: Sodium Chloride 0.9% 1,000 ML IV ONE (14:41)
[2020-01-17 17:18] VITALS: BP 173/70; PULSE 50
--- NOTE | 2020-01-18 09:41 | CR ---
CHEST: Portable 01/17/2020 CLINICAL HISTORY:Fatigue COMPARISON:05/21/2018 FINDINGS: The heart size, pulmonary vascularity and hilar structures are normal. No infiltrate effusion or pneumothorax is seen. There is a nodular density in the right lower hilar region. This was seen on the May 29, 2018 study and is unchanged IMPRESSION: No acute cardiopulmonary process.
== END 2020-01-17 17:47 | disposition home or self-care (01) ==
LOC: JP.ED 12:37
DX: E87.6 Hypokalemia (principal); R00.1 Bradycardia, unspecified; R31.9 Hematuria, unspecified; R10.9 Unspecified abdominal pain; I10 Essential (primary) hypertension; K21.9 Gastro-esophageal reflux disease without esophagitis; F32.9 Major depressive disorder, single episode, unspecified; Z90.49 Acquired absence of other specified parts of digestive tract; Z90.710 Acquired absence of both cervix and uterus; Z79.899 Other long term (current) drug therapy; Z88.4 Allergy status to anesthetic agent
CPT/HCPCS: 36415; 71045; 80053; 81001; 83735; 83880; 84443; 85025; 86140; 93005; 96365; 96366; 99284; A9270; J3480; J7030; 93010

== ENCOUNTER 2020-03-04 14:31 | Emergency (ER) | payer MEDICARE ==
--- NOTE | 2020-03-04 15:30 | EDM.PDOC ---
<Jorge Bernstein - Last Filed: 03/04/20 21:25> ED HPI GENERAL MEDICAL PROBLEM - General Chief Complaint: General Stated Complaint: HIGH POTASSIUM LEVELS, SOB Time Seen by Provider: 03/04/20 15:00 - Related Data Allergies Allergy/AdvReac Type Severity Reaction Status Date / Time lidocaine AdvReac Confusion Verified 03/04/20 14:49 Home Meds: Home Meds Losartan [Cozaar] 100 mg PO DAILY 06/21/17 [History] hydroCHLOROthiazide [Hydrochlorothiazide] 50 mg PO DAILY 06/21/17 [History] Cholecalciferol (Vitamin D3) [Vitamin D3] 2,000 unit PO DAILY 08/15/17 [History] Escitalopram [Lexapro] 10 mg PO DAILY 05/06/18 [History] Magnesium 200 mg PO DAILY 05/06/18 [History] Acetaminophen [Tylenol] 650 mg PO Q4H PRN #90 tablet 05/10/18 [Rx] Omeprazole Magnesium [Prilosec Otc] 20 mg PO DAILY PRN 01/17/20 [History] Departure - Departure Time of Disposition: 21:26 Disposition: Home, Self-Care 01 Condition: Fair Clinical Impression: Hypokalemia - Discharge Information Instructions: Hypokalemia, Potassium Content of Foods Referrals: Leticia Carrasco PA [Primary Care Provider] - Forms: ED Department Discharge Additional Instructions: Please follow-up with your primary care in the next 3 to 5 days for further evaluation of your blood pressure medications hydrochlorothiazide is probably contributing to your low potassium - Assessment/Plan Plan: Assessment Acuity = acute Site and laterality = hypokalemia Etiology = probably related to hydrochlorothiazide Manifestations = none Location of injury = Home Lab values = repeat potassium is 3.9 Plan Have her follow-up with her primary care in the next 3 to 5 days for further evaluation of blood pressure medications, call or return to the emergency department worsening of symptoms This note was dictated using [employer] voice recognition software please call with any questions on syntax or grammar. <Shravan Buchanan - Last Filed: 03/05/20 07:38> ED HPI GENERAL MEDICAL PROBLEM - General Source of Information: Reports: Patient History Limitations: Reports: No Limitations - History of Present Illness INITIAL COMMENTS - FREE TEXT/NARRATIVE: 70-year-old female was being under going a work-up for chronic fatigue, lower abdominal pain, paresthesias of the extremities and was found to have a potassium of 5.7 which she found out yesterday. The lab was drawn on Saturday. Today she was feeling palpitations but no chest pain, became anxious that it may be her potassium so came in for an opinion. No shortness of breath. Denies nausea or vomiting, does have some chronic intermittent diarrhea. She is scheduled for CT scan next Saturday because of the abdominal pain, she had a normal colonoscopy last year. Onset: Unknown/Unsure (Patient has chronic symptoms) Associated Symptoms: Reports: Malaise, Weakness. Denies: Confusion, Chest Pain, Cough, Fever/Chills, Headaches Past Medical History HEENT 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: Cataract, Impaired Vision Other HEENT History: wears glasses Cardiovascular 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: Arrhythmia, Hypertension Gastrointestinal 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: GERD, Hemorrhoids Genitourinary 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: Other (See Below) Other Genitourinary History: bladder and rectal prolapse repair [employer] 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: Musculoskeletal 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: Arthritis, Back Pain, Chronic, Fibromyalgia, Osteoporosis Neurological 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: None Psychiatric 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: Depression - Infectious Disease History Infectious Disease 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: Chicken Pox, Measles, Mumps, Rubella, Shingles - Past Surgical History Head Surgeries/Procedures: Reports: None HEENT Surgical 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: Cataract Surgery, Tonsillectomy GI Surgical 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: Appendectomy, Cholecystectomy, Colonoscopy, Other (See Below) Other GI Surgeries/Procedures: drainage of liver cyst. rectocele/cysotcele repair Female Surgical 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: Hysterectomy Neurological Surgical 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: Lumbar Spine, Spinal Fusion Musculoskeletal Surgical 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: Arthroscopic Knee Dermatological Surgical 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: None Social & Family History - Family History HEENT: Reports: Cataract Cardiac: Reports: Arrhythmia, [place] Respiratory: Reports: None GI: Reports: Cholelithiasis : Reports: None OBGYN: Reports: None Musculoskeletal: Reports: Arthritis Neurological: Reports: CVA Psychiatric: Reports: Depression Endocrine/Metabolic: Reports: None Hematologic: Reports: None Immunologic: Reports: None Oncologic: Reports: Lung - Tobacco Use Smoking Status *Q: Never Smoker - Caffeine Use Caffeine Use: Reports: Coffee Caffeine Use Comment: 2-3 cups/daily - Recreational Drug Use Recreational Drug Use: No ED ROS GENERAL - Review of Systems Review Of Systems: See Below Constitutional: Reports: Malaise. Denies: Fever, Chills, Weight Loss HEENT: Reports: No Symptoms Respiratory: Reports: Shortness of Breath. Denies: Cough Cardiovascular: Reports: Palpitations. Denies: Chest Pain Endocrine: Reports: Fatigue GI/Abdominal: Denies: Nausea, Vomiting : Reports: No Symptoms Musculoskeletal: Reports: Other (Generalized weakness, no pain) Skin: Reports: No Symptoms Neurological: Reports: Weakness, Other (Some paresthesia sensations on the anterior lower extremities bilaterally) ED EXAM, GENERAL - Physical Exam Exam: See Below Exam Limited By: No Limitations General Appearance: Alert, No Apparent Distress Eye Exam: Bilateral Eye: Normal Inspection Head: Atraumatic Neck: Non-Tender Respiratory/Chest: Lungs Clear Cardiovascular: Regular Rate, Rhythm, No Murmur. No: Extra Beats GI/Abdominal: Soft, Other (Mild discomfort to palpation in the left lower quadrant, no guarding or rebound, no masses felt) Extremities: Normal Inspection. No: Pedal Edema Neurological: Alert, Oriented, No Motor/Sensory Deficits Psychiatric: Normal Affect, Normal Mood Skin Exam: Warm, Dry Course - Vital Signs Last Recorded V/S: Last Vital Signs Temp 97.7 F 03/04/20 14:48 Pulse 67 03/04/20 20:33 Resp 16 03/04/20 20:02 BP 121/54 L 03/04/20 20:33 Pulse Ox 97 03/04/20 20:02 - Orders/Labs/Meds Labs: Laboratory Tests 03/04/20 03/04/20 Range/Units 15:37 21:15 Sodium 139 L (140-148) mmol/L Potassium 2.5 L* 3.9 (3.6-5.2) mmol/L Chloride 100 (100-108) mmol/L Carbon Dioxide 30 (21-32) mmol/L Anion Gap 11.5 (5.0-14.0) mmol/L BUN 16 D (7-18) mg/dL Creatinine 0.8 (0.6-1.0) mg/dL Est Cr Clr Drug Dosing 48.67 mL/min Estimated GFR (MDRD) > 60 (>60) Glucose 95 (74-106) mg/dL Calcium 8.9 (8.5-10.1) mg/dL Meds: Medications Discontinued Medications Generic Name Dose Route Start Last Admin Trade Name Freq PRN Reason Stop Dose Admin Potassium Chloride 20 meq/ 112 mls @ 56 mls/hr 03/04/20 17:00 03/04/20 18:44 Lidocaine HCl 2 ml/ Sodium IV 03/04/20 20:59 56 mls/hr Chloride Q2H JAXSON Administration - Re-Assessments/Exams Free Text/Narrative Re-Assessment/Exam: 03/04/20 15:30 I do not see an indication to move up her CT scan, but we will recheck her potassium as well as her calcium. A BMP and calcium were obtained. 03/04/20 18:05 Potassium is now 2.5. The 5.7 level 2 days ago is likely erroneous. I reviewed her potassium levels from the past 3 years and they usually run low. She will be given 40 mEq of IV potassium over the next 4 hours, and a recheck potassium at 10 PM. Sepsis Event Note (ED) - Evaluation Sepsis Screening Result: No Definite Risk - Focused Exam Vital Signs: Vital Signs Pulse Resp BP Pulse Ox 03/04/20 20:33 67 121/54 L 03/04/20 20:02 66 16 123/54 L 97
[2020-03-04] MEDS ORDERED: Potassium Chloride 20 MEQ in Premix Bag 1 BAG IV ONE ×2 (16:03→16:06)
[2020-03-04] MEDS: Potassium Chloride 20 MEQ, Lidocaine 1% 2 ML in Sodium Chloride 0.9% 100 ML IV SCH ×2 (16:54→18:44)
[2020-03-04 21:13] VITALS: BP 121/54; PULSE 67
== END 2020-03-04 21:35 | disposition home or self-care (01) ==
LOC: JP.ED 14:31
DX: E87.6 Hypokalemia (principal); I10 Essential (primary) hypertension; F32.9 Major depressive disorder, single episode, unspecified; Z88.4 Allergy status to anesthetic agent; Z79.899 Other long term (current) drug therapy
CPT/HCPCS: 36415; 80048; 84132; 96365; 96366; 99284; J2001; J3480; J7050

== ENCOUNTER 2020-08-09 19:04 | Emergency (ER) | payer BC, MEDICARE ==
[2020-08-09 19:17] VITALS: BP 175/69; PULSE 64
--- NOTE | 2020-08-09 20:14 | EDM.PDOC ---
ED HPI GENERAL MEDICAL PROBLEM - General Chief Complaint: Abdominal Pain Stated Complaint: STOMACH PAIN Time Seen by Provider: 08/09/20 19:35 Source of Information: Reports: Patient History Limitations: Reports: No Limitations - History of Present Illness INITIAL COMMENTS - FREE TEXT/NARRATIVE: 70-year-old female with chronic abdominal pain, not severe but persistent. She has had numerous tests and work-ups including scans, ultrasounds and lab. She was seen in the emergency room in [place] recently and was diagnosed with a UTI, a follow-up call today was done and she told them she was still having some pain so they told her to go to the emergency room. She has no fever or chills, she has no pain with walking or movement, good appetite and normal BMs. No nausea or vomiting. Onset: Unknown/Unsure Duration: Chronic Location: Reports: Abdomen (Upper abdomen) Quality: Reports: Ache, Pressure Associated Symptoms: Reports: No Other Symptoms - Related Data Allergies Allergy/AdvReac Type Severity Reaction Status Date / Time lidocaine AdvReac Confusion Verified 03/04/20 14:49 Home Meds: Home Meds Losartan [Cozaar] 100 mg PO DAILY 06/21/17 [History] hydroCHLOROthiazide [Hydrochlorothiazide] 25 mg PO DAILY 06/21/17 [History] Cholecalciferol (Vitamin D3) [Vitamin D3] 2,000 unit PO DAILY 08/15/17 [History] Escitalopram [Lexapro] 10 mg PO DAILY 05/06/18 [History] Magnesium 200 mg PO DAILY 05/06/18 [History] Acetaminophen [Tylenol] 650 mg PO Q4H PRN #90 tablet 05/10/18 [Rx] Omeprazole Magnesium [Prilosec Otc] 20 mg PO DAILY PRN 01/17/20 [History] Folic Acid 1 mg PO DAILY 08/09/20 [History] Mecobalamin [B12 Active] 1,000 mcg PO DAILY 08/09/20 [History] Past Medical History HEENT 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: Cataract, Impaired Vision Other HEENT History: wears glasses Cardiovascular 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: Arrhythmia, Hypertension Gastrointestinal 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: GERD, Hemorrhoids Genitourinary 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: Other (See Below) Other Genitourinary History: bladder and rectal prolapse repair 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: Musculoskeletal 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: Arthritis, Back Pain, Chronic, Fibromyalgia, Osteoporosis Neurological 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: None Psychiatric 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: Depression - Infectious Disease History Infectious Disease 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: Chicken Pox, Measles, Mumps, Rubella, Shingles - Past Surgical History Head Surgeries/Procedures: Reports: None HEENT Surgical 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: Cataract Surgery, Tonsillectomy Cardiovascular Surgical 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: None GI Surgical 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: Appendectomy, Cholecystectomy, Colonoscopy, Other (See Below) Other GI Surgeries/Procedures: drainage of liver cyst. rectocele/cysotcele repair Female Surgical 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: Hysterectomy Other Female Surgeries/Procedures: "reconstructive surgery" cystocele/rectocele Neurological Surgical 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: Lumbar Spine, Spinal Fusion Musculoskeletal Surgical 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: Arthroscopic Knee Dermatological Surgical 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: None Social & Family History - Family History Family Medical History: No Pertinent Family History HEENT: Reports: Cataract Cardiac: Reports: Arrhythmia, [place] Respiratory: Reports: None GI: Reports: Cholelithiasis : Reports: None OBGYN: Reports: None Musculoskeletal: Reports: Arthritis Neurological: Reports: CVA Psychiatric: Reports: Depression Endocrine/Metabolic: Reports: None Hematologic: Reports: None Immunologic: Reports: None Oncologic: Reports: Lung - Tobacco Use Tobacco Use Status *Q: Never Tobacco User - Caffeine Use Caffeine Use: Reports: Coffee Caffeine Use Comment: 2-3 cups/daily - Recreational Drug Use Recreational Drug Use: No ED ROS GENERAL - Review of Systems Review Of Systems: See Below Constitutional: Denies: Fever, Chills HEENT: Reports: No Symptoms Respiratory: Denies: Shortness of Breath, Cough Cardiovascular: Denies: Chest Pain GI/Abdominal: Reports: Other (Patient has a good appetite, food does not affect the pain). Denies: Nausea, Vomiting : Reports: No Symptoms, Other (Recent "UTI "has been treated) Skin: Reports: No Symptoms Neurological: Denies: Headache Psychiatric: Reports: No Symptoms ED EXAM, GI/ABD - Physical Exam Exam: See Below Exam Limited By: No Limitations General Appearance: Alert, No Apparent Distress Eyes: Bilateral: Normal Appearance (No jaundice) Head: Atraumatic Respiratory/Chest: No Respiratory Distress, Lungs Clear Cardiovascular: Regular Rate, Rhythm GI/Abdominal Exam: Soft, Non-Tender (I really cannot reproduce her abdominal pain with palpation) Neurological: Alert, Oriented Psychiatric: Normal Affect, Normal Mood Skin Exam: Warm, Dry Course - Vital Signs Last Recorded V/S: Last Vital Signs Temp 97.7 F 08/09/20 19:36 Pulse 64 08/09/20 19:36 Resp 16 08/09/20 19:36 BP 175/69 H 08/09/20 19:36 Pulse Ox 97 08/09/20 19:36 - Orders/Labs/Meds Labs: Laboratory Tests 08/09/20 Range/Units 20:02 Urine Color Yellow (YELLOW) Urine Appearance Clear (CLEAR) Urine pH 7.0 (5.0-8.0) Ur Specific [place] 1.015 (1.008-1.030) Urine Protein Negative (NEGATIVE) mg/dL Urine Glucose (UA) Negative (NEGATIVE) mg/dL Urine Ketones Negative (NEGATIVE) mg/dL Urine Occult Blood Negative (NEGATIVE) Urine Nitrite Negative (NEGATIVE) Urine Bilirubin Negative (NEGATIVE) Urine Urobilinogen 0.2 (0.2-1.0) EU/dL Ur Leukocyte Esterase Negative (NEGATIVE) Urine RBC 0-5 (0-5) Urine WBC 0-5 (0-5) Ur Epithelial Cells Rare Amorphous Sediment Not seen Urine Bacteria Not seen Urine Mucus Not seen - Re-Assessments/Exams Free Text/Narrative Re-Assessment/Exam: 08/09/20 20:21 A mini cath UA was obtained but no further work-up is necessary today. 08/09/20 20:24 Urine is clear, patient remained fairly comfortable. I asked her to make an appoint with Dr. Mitchell or Dr. Green to discuss either a laparoscopy looking for adhesions or possibly a colonoscopy or EGD in the near future. Departure - Departure Time of Disposition: 20:54 Disposition: Home, Self-Care 01 Clinical Impression: Chronic abdominal pain - Discharge Information Instructions: Abdominal Pain, Adult, [id number] Referrals: PCP,None [Primary Care Provider] - Forms: ED Department Discharge Care Plan Goals: Consider making appointment with Dr. Mitchell or Dr. Green at the clinic to discuss further surgical or procedural investigation of your chronic pain. Sepsis Event Note (ED) - Evaluation Sepsis Screening Result: No Definite Risk - Focused Exam Vital Signs: Vital Signs Temp Pulse Resp BP Pulse Ox 08/09/20 19:36 97.7 F 64 16 175/69 H 97 08/09/20 19:15 97.7 F 64 16 175/69 H 97
== END 2020-08-09 20:30 | disposition home or self-care (01) ==
LOC: JP.ED 19:04
DX: R10.9 Unspecified abdominal pain (principal); G89.29 Other chronic pain; K21.9 Gastro-esophageal reflux disease without esophagitis; Z88.4 Allergy status to anesthetic agent; Z79.899 Other long term (current) drug therapy
CPT/HCPCS: 81001; 99282; 99284

== ENCOUNTER 2021-11-05 15:38 | Emergency (ER) | payer MEDICARE ==
[2021-11-05 16:02] VITALS: PULSE 63
[2021-11-05] MEDS ORDERED: Ketorolac 30 MG/ML SDV IM ONE (16:15)
[2021-11-05 16:40] VITALS: BP 170/75
[2021-11-05 16:55] LABS: TROPONIN I HIGH SENSITIVITY 7.1 pg/mL (<=60.3)
== END 2021-11-05 17:56 | disposition home or self-care (01) ==
LOC: JP.ED 15:38
DX: M79.602 Pain in left arm (principal); I10 Essential (primary) hypertension; K21.9 Gastro-esophageal reflux disease without esophagitis; Z88.4 Allergy status to anesthetic agent; Z79.899 Other long term (current) drug therapy
CPT/HCPCS: 36415; 80048; 84484; 85025; 85379; 96372; 99282; 99283; J1885

== ENCOUNTER 2022-04-20 12:04 | Emergency (ER) | payer MEDICARE ==
[2022-04-20 12:35] VITALS: BP 139/71; PULSE 67
[2022-04-20 13:36] LABS: ESTIMATED GFR 78 mL/min (>60); TROPONIN I HIGH SENSITIVITY 5.2 pg/mL (<=60.3)
== END 2022-04-20 14:15 | disposition home or self-care (01) ==
LOC: JP.ED 12:04
DX: R07.89 Other chest pain (principal); I10 Essential (primary) hypertension; K21.9 Gastro-esophageal reflux disease without esophagitis; Z88.4 Allergy status to anesthetic agent; Z79.899 Other long term (current) drug therapy
CPT/HCPCS: 36415; 71046; 80053; 83605; 84484; 85025; 85379; 93005; 99285

== ENCOUNTER 2022-07-27 06:02 | Day surgery (SDC) | payer MEDICARE ==
[2022-07-27] MEDS ORDERED: Dextrose 5%-Lactated Ringers 1,000 ML IV SCH (06:30)
[2022-07-27] MEDS ORDERED: fentaNYL 50 MCG/ML SDV ONE (07:11)
[2022-07-27] MEDS ORDERED: Midazolam 1 MG/ML 2 ML SDV ONE (07:11)
[2022-07-27] MEDS ORDERED: Propofol 200 MG/20 ML SDV ONE (07:11)
[2022-07-27] MEDS ORDERED: Pantoprazole 40 MG Vial IVPUSH ONE (08:30)
[2022-07-27 09:02] VITALS: BP 120/59; PULSE 60
== END 2022-07-27 09:11 | disposition home or self-care (01) ==
LOC: JP.SDS 06:02
PROVIDERS: ATTEND Surgery
DX: K44.9 Diaphragmatic hernia without obstruction or gangrene (principal); I25.10 Atherosclerotic heart disease of native coronary artery without angina pectoris; M19.90 Unspecified osteoarthritis, unspecified site; I12.9 Hypertensive chronic kidney disease with stage 1 through stage 4 chronic kidney disease, or unspecified chronic kidney disease; N18.2 Chronic kidney disease, stage 2 (mild); Z79.899 Other long term (current) drug therapy
CPT/HCPCS: 43239; 87081; C9113; J2250; J2704; J3010; J7121

== ENCOUNTER 2023-08-28 08:23 | Day surgery (SDC) | payer MEDICARE ==
[~2023-08-28 08:23] MED LIST: Propofol 200 MG/20 ML SDV ONE; fentaNYL 100 MCG/2 ML SDV ONE
[2023-08-28] MEDS: Lactated Ringers 1,000 ML IV SCH (09:03)
[2023-08-28] MEDS ORDERED: Propofol 200 MG/20 ML SDV ONE (10:44)
[2023-08-28 14:25] VITALS: BP 119/59; PULSE 56
== END 2023-08-28 12:20 | disposition home or self-care (01) ==
LOC: JP.SDS 08:23
PROVIDERS: ATTEND Student in an Organized Health Care Education/Training Program
DX: Z12.11 Encounter for screening for malignant neoplasm of colon (principal); D12.2 Benign neoplasm of ascending colon; D12.3 Benign neoplasm of transverse colon; D12.0 Benign neoplasm of cecum; I10 Essential (primary) hypertension; K63.5 Polyp of colon; K21.9 Gastro-esophageal reflux disease without esophagitis; E87.6 Hypokalemia; Z86.010 Personal history of colon polyps
CPT/HCPCS: 45380; 88305; 88313; 88341; 88342; J2704; J3010; J7120

== ENCOUNTER 2024-07-17 07:52 | Day surgery (SDC) | payer MEDICARE ==
[2024-07-17] MEDS ORDERED: Propofol 200 MG/20 ML SDV ONE (08:40)
[2024-07-17] MEDS ORDERED: fentaNYL 50 MCG/ML SDV ONE (08:40)
[2024-07-17] MEDS: Lactated Ringers 1,000 ML IV SCH (08:45)
[2024-07-17 10:27] VITALS: BP 123/62; PULSE 55
== END 2024-07-17 10:49 | disposition home or self-care (01) ==
LOC: JP.SDS 07:52
PROVIDERS: ATTEND Family Medicine
DX: Z12.11 Encounter for screening for malignant neoplasm of colon (principal); K63.89 Other specified diseases of intestine; K57.30 Diverticulosis of large intestine without perforation or abscess without bleeding; I25.10 Atherosclerotic heart disease of native coronary artery without angina pectoris; I12.9 Hypertensive chronic kidney disease with stage 1 through stage 4 chronic kidney disease, or unspecified chronic kidney disease; E11.22 Type 2 diabetes mellitus with diabetic chronic kidney disease; N18.9 Chronic kidney disease, unspecified; Z86.0101 Personal history of adenomatous and serrated colon polyps
CPT/HCPCS: 00811-QZ; 45380; 88305; J2704; J3010; J7120

== ENCOUNTER 2024-09-10 15:18 | Emergency (ER) | payer MEDICARE ==
[2024-09-10 15:51] VITALS: BP 132/55; PULSE 83
[2024-09-10 16:46] LABS: BASOPHILS ABSOLUTE AUTO 0.03 K/uL (0.00-0.10); BASOPHILS PERCENT AUTO 0.3 % (0.1-1.3); EOSINOPHILS ABSOLUTE AUTO 0.03 K/uL (0.00-0.40); EOSINOPHILS PERCENT AUTO 0.3 % (0.0-5.4); HEMATOCRIT 33.7 % (34.3-46.0); HEMOGLOBIN 11.6 g/dL (11.2-15.5); IMMATURE GRAN ABSOLUTE AUTO 0.03 K/uL (0.00-0.23); IMMATURE GRAN PERCENT AUTO 0.3 % (0.0-0.7); LYMPHOCYTES ABSOLUTE AUTO 1.15 K/uL (0.8-3.3); MEAN CORPUSCULAR HEMOGLOBIN 30.1 pg (31.6-35.5); MEAN CORPUSCULAR HGB CONC 34.4 g/dL (31.6-35.5); MEAN CORPUSCULAR VOLUME 87.5 fL (81.4-99.0); MONOCYTES ABSOLUTE AUTO 0.95 K/uL (0.20-0.90); MONOCYTES PERCENT AUTO 10.8 % (3.3-12.6); NEUTROPHILS ABSOLUTE AUTO 6.63 K/uL (1.0-7.6); NEUTROPHILS PERCENT AUTO 75.3 % (40.0-78.1); PLATELET COUNT,PLT 191 K/uL (130-375); RED BLOOD CELL COUNT 3.85 M/uL (3.77-5.24); WHITE BLOOD CELL COUNT,WBC 8.8 K/uL (3.2-11.0)
[2024-09-10 17:20] LABS: ALANINE AMINOTRANSFERASE,ALT 17 U/L (12-78); ALBUMIN 3.5 g/dL (3.4-5.0); ALKALINE PHOSPHATASE 72 U/L (46-116); ASPARTATE AMNIOTRANSFERASE,AST 14 U/L (15-37); BILIRUBIN TOTAL 0.8 mg/dL (0.2-1.0); BLOOD UREA NITROGEN,BUN 10 mg/dL (7-18); C-REACTIVE PROTEIN 3.26 mg/dL (<0.50); CALCIUM 8.9 mg/dL (8.5-10.1); CARBON DIOXIDE,CO2 27 mmol/L (21-32); CHLORIDE,CL 99 mmol/L (100-108); CREATININE 0.8 mg/dL (0.6-1.0); EST CRCL DRUG DOSING (CG) 45.85 mL/min; ESTIMATED GFR 77 mL/min (>60); GLUCOSE RANDOM 112 mg/dL (74-106); POTASSIUM,K 3.7 mmol/L (3.6-5.2); PROTEIN TOTAL,TP 7.1 g/dL (6.4-8.2); SODIUM,NA 138 mmol/L (140-148)
[2024-09-10 17:22] LABS: ANION GAP 15.7 mmol/L (5.0-14.0)
[2024-09-10 17:26] LABS: LYME AB IgG Negative (Negative); LYME AB IgM Negative (Negative)
== END 2024-09-10 17:45 | disposition home or self-care (01) ==
LOC: JP.ED 15:18
DX: R50.9 Fever, unspecified (principal); I10 Essential (primary) hypertension; E78.00 Pure hypercholesterolemia, unspecified; Z79.899 Other long term (current) drug therapy
CPT/HCPCS: 36415; 80053; 83605; 85025; 85379; 86140; 86618; 87428-QW; 99283; 99284